=== PATIENT | male | born 1940 | race Caucasian/White ===

== ENCOUNTER 2017-07-19 13:46 | Inpatient (IN) | payer MEDICARE, BC ==
[2017-07-19] MEDS ORDERED: Acetaminophen 325 MG Tab PO ONE (14:59)
[2017-07-19] MEDS ORDERED: Sodium Chloride 0.9% 1,000 ML IV SCH ×2 (15:00→16:00)
--- NOTE | 2017-07-19 15:21 | EDM.PDOC ---
ED HPI GENERAL MEDICAL PROBLEM - General Chief Complaint: General Stated Complaint: FROM CLINIC HIGH BLOOD PRESURE Time Seen by Provider: 07/19/17 15:01 Source of Information: Reports: Patient History Limitations: Reports: No Limitations - History of Present Illness INITIAL COMMENTS - FREE TEXT/NARRATIVE: pt arrived with increased sleepyness and confusion. He does have some dementia. He now has a temp of 102 Onset: Today Duration: Hour(s): Associated Symptoms: Reports: Fever/Chills, Weakness, Other ( confusion) - Related Data Allergies Allergy/AdvReac Type Severity Reaction Status Date / Time No Known Allergies Allergy Verified 07/19/17 14:20 Home Meds: Home Meds Donepezil [Aricept] 5 mg PO BEDTIME 07/19/17 [History] Past Medical History HEENT History: Reports: Cataract Musculoskeletal History: Reports: Arthritis Neurological History: Reports: Other (See Below) Other Neuro History: dementia - Past Surgical History HEENT Surgical History: Reports: None Social & Family History - Tobacco Use Smoking Status *Q: Never Smoker - Recreational Drug Use Recreational Drug Use: No ED ROS GENERAL - Review of Systems Review Of Systems: See Below Constitutional: Reports: Fever, Chills, Malaise, Other ( sleeping alot. ) HEENT: Reports: No Symptoms Respiratory: Reports: No Symptoms Cardiovascular: Reports: No Symptoms Endocrine: Reports: No Symptoms GI/Abdominal: Reports: No Symptoms : Reports: No Symptoms, Other (pt history of a uti with sepsis) Musculoskeletal: Reports: No Symptoms Skin: Reports: No Symptoms Neurological: Reports: No Symptoms Psychiatric: Reports: No Symptoms ED EXAM, GENERAL - Physical Exam Exam: See Below Free Text/Narrative:: pt has a temp of 102. He is quite lethargic. He does answer questions. Exam Limited By: No Limitations General Appearance: Alert, Moderate Distress, Other (pupils equal and reactive. ) Ears: Normal TMs Nose: Normal Inspection Throat/Mouth: Normal Inspection Head: Atraumatic Neck: Normal Inspection Respiratory/Chest: No Respiratory Distress Cardiovascular: Regular Rate, Rhythm, Tachycardia, Other ( heart rate is 95) GI/Abdominal: Soft, Non-Tender (Male) Exam: Other ( guzman cath was placed. ) Rectal (Males) Exam: Deferred Back Exam: Normal Inspection Extremities: Normal Inspection Neurological: Alert, Oriented, Normal Cognition Psychiatric: Normal Affect Course - Vital Signs Last Recorded V/S: Last Vital Signs Temp 36.1 C 07/21/17 07:19 Pulse 61 07/21/17 07:00 Resp 18 07/21/17 07:00 BP 114/72 07/21/17 07:00 Pulse Ox 99 07/21/17 07:00 - Orders/Labs/Meds Orders: Medication Orders Acetaminophen (Tylenol) 650 mg PO Q4H PRN PRN Reason: Pain (Mild 1-3)/fever Last Admin: 07/20/17 23:16 Dose: 650 mg Admin: 07/20/17 14:51 Dose: 650 mg Admin: 07/20/17 05:08 Dose: 650 mg Enoxaparin Sodium (Lovenox) 40 mg SUBCUT BEDTIME [facility] Last Admin: 07/20/17 21:04 Dose: 40 mg Admin: 07/19/17 22:17 Dose: 40 mg Doxycycline Hyclate 100 mg/ (Sodium Chloride) 100 mls @ 100 mls/hr IV Q12H [facility] Last Admin: 07/21/17 05:11 Dose: 100 mls/hr Admin: 07/20/17 18:00 Dose: 100 mls/hr Admin: 07/20/17 05:09 Dose: 100 mls/hr Admin: 07/19/17 17:10 Dose: 100 mls/hr Ibuprofen (Motrin) 400 mg PO Q6H PRN PRN Reason: Pain (mild 1-3) Last Admin: 07/20/17 20:59 Dose: 400 mg Magnesium Hydroxide (Milk Of Magnesia) 30 ml PO Q12H PRN PRN Reason: Constipation Magnesium Oxide (Magnesium Oxide) 400 mg PO BID [facility] Last Admin: 07/20/17 21:09 Dose: 400 mg Admin: 07/20/17 11:40 Dose: 400 mg Melatonin (Melatonin) 9 mg PO BEDTIME [facility] Last Admin: 07/20/17 21:25 Dose: 9 mg Ondansetron HCl (Zofran) 4 mg IV Q4H PRN PRN Reason: Nausea/Vomiting Polyethylene Glycol (Miralax) 17 gm PO DAILY PRN PRN Reason: Constipation Senna/Docusate Sodium (Senna Plus) 1 tab PO BID PRN PRN Reason: Constipation Sodium Chloride (Saline Flush) 10 ml FLUSH ASDIRECTED PRN PRN Reason: Keep Vein Open Labs: Laboratory Tests 07/19/17 07/19/17 07/19/17 Range/Units 14:58 14:58 14:58 WBC 11.0 (4.5-11.0) K/uL RBC 4.85 (4.30-5.90) M/uL Hgb 15.2 H (12.0-15.0) g/dL Hct 44.0 (40.0-54.0) % MCV 91 (80-98) fL MCH 31 (27-31) pg MCHC 35 (32-36) % Plt Count 222 (150-400) K/uL Neut % (Auto) 86 H (36-66) % Lymph % (Auto) 6 L (24-44) % [place] % (Auto) 8 H (2-6) % Eos % (Auto) 0 L (2-4) % Baso % (Auto) 0 (0-1) % Sodium 138 L (140-148) mmol/L Potassium 4.4 (3.6-5.2) mmol/L Chloride 102 (100-108) mmol/L Carbon Dioxide 28 (21-32) mmol/L Anion Gap 12.4 (5.0-14.0) mmol/L BUN 19 H (7-18) mg/dL Creatinine 1.0 (0.8-1.3) mg/dL Est Cr Clr Drug Dosing 55.83 mL/min Estimated GFR (MDRD) > 60 (>60) Glucose 115 H (74-106) mg/dL Lactic Acid 2.4 H (0.4-2.0) mmol/L Calcium 9.1 (8.5-10.1) mg/dL Total Bilirubin 0.7 (0.2-1.0) mg/dL AST 32 (15-37) U/L ALT 31 (12-78) U/L Alkaline Phosphatase 68 (46-116) U/L Total Protein 8.1 (6.4-8.2) g/dL Albumin 3.3 L (3.4-5.0) g/dL Globulin 4.8 H (2.3-3.5) g/dL Albumin/Globulin Ratio 0.7 L (1.2-2.2) Urine Color Urine Appearance Urine pH (4.5-8.0) Ur Specific [place] (1.008-1.030) Urine Protein (NEGATIVE) mg/dL Urine Glucose (UA) (NEGATIVE) mg/dL Urine Ketones (NEGATIVE) mg/dL Urine Occult Blood (NEGATIVE) Urine Nitrite (NEGAITVE) Urine Bilirubin (NEGATIVE) Urine Urobilinogen (NORMAL) mg/dL Ur Leukocyte Esterase (NEGATIVE) Urine RBC (0-5) Urine WBC (0-5) Ur Epithelial Cells Amorphous Sediment Urine Bacteria Urine Mucus 07/19/17 Range/Units 15:49 WBC (4.5-11.0) K/uL RBC (4.30-5.90) M/uL Hgb (12.0-15.0) g/dL Hct (40.0-54.0) % MCV (80-98) fL MCH (27-31) pg MCHC (32-36) % Plt Count (150-400) K/uL Neut % (Auto) (36-66) % Lymph % (Auto) (24-44) % [place] % (Auto) (2-6) % Eos % (Auto) (2-4) % Baso % (Auto) (0-1) % Sodium (140-148) mmol/L Potassium (3.6-5.2) mmol/L Chloride (100-108) mmol/L Carbon Dioxide (21-32) mmol/L Anion Gap (5.0-14.0) mmol/L BUN (7-18) mg/dL Creatinine (0.8-1.3) mg/dL Est Cr Clr Drug Dosing mL/min Estimated GFR (MDRD) (>60) Glucose (74-106) mg/dL Lactic Acid (0.4-2.0) mmol/L Calcium (8.5-10.1) mg/dL Total Bilirubin (0.2-1.0) mg/dL AST (15-37) U/L ALT (12-78) U/L Alkaline Phosphatase (46-116) U/L Total Protein (6.4-8.2) g/dL Albumin (3.4-5.0) g/dL Globulin (2.3-3.5) g/dL Albumin/Globulin Ratio (1.2-2.2) Urine Color Yellow Urine Appearance Clear Urine pH 5.0 (4.5-8.0) Ur Specific [place] 1.015 (1.008-1.030) Urine Protein Negative (NEGATIVE) mg/dL Urine Glucose (UA) Normal (NEGATIVE) mg/dL Urine Ketones Negative (NEGATIVE) mg/dL Urine Occult Blood Large (NEGATIVE) Urine Nitrite Negative (NEGAITVE) Urine Bilirubin Negative (NEGATIVE) Urine Urobilinogen Normal (NORMAL) mg/dL Ur Leukocyte Esterase Negative (NEGATIVE) Urine RBC 0-5 (0-5) Urine WBC Not seen (0-5) Ur Epithelial Cells Not seen Amorphous Sediment Rare Urine Bacteria Not seen Urine Mucus Not seen Meds: Medications Generic Name Dose Route Start Last Admin Trade Name Alyse PRN Reason Stop Dose Admin Acetaminophen 650 mg 07/19/17 17:04 07/20/17 23:16 Tylenol PO 650 mg Q4H PRN Administration Pain (Mild 1-3)/fever Enoxaparin Sodium 40 mg 07/19/17 21:00 07/20/17 21:04 Lovenox SUBCUT 40 mg BEDTIME [facility] Administration Doxycycline Hyclate 100 mg/ 100 mls @ 100 mls/hr 07/19/17 17:30 07/21/17 05: 11 Sodium Chloride IV 100 mls/hr Q12H [facility] Administration Ibuprofen 400 mg 07/19/17 17:04 07/20/17 20:59 Motrin PO 400 mg Q6H PRN Administration Pain (mild 1-3) Magnesium Hydroxide 30 ml 07/19/17 17:04 Milk Of Magnesia PO Q12H PRN Constipation Magnesium Oxide 400 mg 07/20/17 10:30 07/20/17 21:09 Magnesium Oxide PO 400 mg BID [facility] Administration Melatonin 9 mg 07/20/17 21:00 07/20/17 21:25 Melatonin PO 9 mg BEDTIME [facility] Administration Ondansetron HCl 4 mg 07/19/17 17:04 Zofran IV Q4H PRN Nausea/Vomiting Polyethylene Glycol 17 gm 07/19/17 17:04 Miralax PO DAILY PRN Constipation Senna/Docusate Sodium 1 tab 07/19/17 17:04 Senna Plus PO BID PRN Constipation Sodium Chloride 10 ml 07/19/17 17:04 Saline Flush FLUSH ASDIRECTED PRN Keep Vein Open Discontinued Medications Generic Name Dose Route Start Last Admin Trade Name Alyse PRN Reason Stop Dose Admin Acetaminophen 650 mg 07/19/17 14:59 07/19/17 15:06 Tylenol PO 07/19/17 15:00 650 mg NOW ONE Administration Sodium Chloride 1,000 mls @ 999 mls/hr 07/19/17 15:00 07/19/17 15:06 Normal Saline IV 999 mls/hr ASDIRECTED [facility] Administration Sodium Chloride 1,000 mls @ 999 mls/hr 07/19/17 16:00 07/19/17 15:10 Normal Saline IV 999 mls/hr ASDIRECTED [facility] Administration Ceftriaxone Sodium 1 gm/ 50 mls @ 100 mls/hr 07/19/17 17:00 07/19/17 16:51 Sodium Chloride IV 07/19/17 17:29 100 mls/hr ONETIME ONE Administration Lactated Ringer's 1,000 mls @ 250 mls/hr 07/19/17 17:04 07/19/17 20:09 Ringers, Lactated IV 07/19/17 21:05 250 mls/hr ASDIRECTED [facility] Administration Lactated Ringer's 1,000 mls @ 125 mls/hr 07/19/17 21:00 07/20/17 10:17 Ringers, Lactated IV 125 mls/hr ASDIRECTED [facility] Administration Levofloxacin/Dextrose 750 mg/ 150 mls @ 100 mls/hr 07/19/17 18:30 07/19/17 19 :54 Premix IV 100 mls/hr Q24H [facility] Administration Ibuprofen 600 mg 07/19/17 16:04 07/19/17 16:43 Motrin PO 07/19/17 16:05 600 mg ONETIME ONE Administration - Re-Assessments/Exams Free Text/Narrative Re-Assessment/Exam: 07/19/17 16:11 pt had a neg urine. His chest xray is not remarkable. He has a wbc of 11,ooo his bp is stable. Pt has a normal sgot and he has normal platlet count. 07/21/17 07:39 Departure - Departure Time of Disposition: 16:12 Disposition: Admitted As Inpatient 66 Condition: Fair Clinical Impression: Sepsis, At high risk for tick borne illness - Discharge Information
[2017-07-19] MEDS ORDERED: cefTRIAXone 1 GM in Sodium Chloride 0.9% 50 ML IV ONE ×2 (15:37→17:00)
[2017-07-19] MEDS ORDERED: Ibuprofen 600 MG Tab PO ONE (16:04)
[2017-07-19] MEDS ORDERED: Polyethylene Glycol 3350 Powder 17 GM Packet PO PRN (17:04)
[2017-07-19] MEDS ORDERED: Sodium Chloride 0.9% 10 ML Syringe FLUSH PRN (17:04)
[2017-07-19] MEDS ORDERED: Lactated Ringers 1,000 ML IV SCH ×2 (17:04→21:00)
[2017-07-19] MEDS ORDERED: Levofloxacin/Dextrose 5%-Water 750 MG in Premix Bag 1 BAG IV SCH ×2 (17:04→18:30)
[2017-07-19] MEDS ORDERED: Ondansetron 4 MG/2 ML SDV IV PRN (17:04)
[2017-07-19] MEDS ORDERED: Enoxaparin 40 MG/0.4 ML Syringe SUBCUT SCH (17:04)
[2017-07-19] MEDS ORDERED: Ibuprofen 400 MG Tab PO PRN (17:04)
--- NOTE | 2017-07-19 17:06 | PCM.HP ---
H&P History of Present Illness - General Date of Service: 07/19/17 Admit Problem/Dx: Admission Diagnosis/Problem Admission Diagnosis/Problem Fever Source of Information: Family, Provider, RN Notes Reviewed History Limitations: Reports: Altered Mental Status (Dementia) - History of Present Illness Initial Comments - Free Text/Narative: Mr. Zapata is a 77-year-old gentleman who is admitted through the emergency department with lethargy and fever. At baseline he has dementia, typically is up and about but has difficulty with memory and speech. His noted that he seemed to be more confused today and became progressively more weak. He was brought into the emergency department for further evaluation and found to have significant temperature elevation of 102, later rising to 103. He is otherwise fairly healthy and has not had much in the way of past medical history other than his dementia. He has been exposed to ticks recently and has been outside on a regular basis. Patient himself is unable to provide significant information concerning symptoms or review of systems because of his underlying dementia. Evaluation in the emergency department has shown a normal urinalysis and no evidence of infiltrate on chest x-ray. - Related Data Allergies/Adverse Reactions: Allergies Allergy/AdvReac Type Severity Reaction Status Date / Time No Known Allergies Allergy Verified 07/19/17 14:20 Home Medications: Home Meds Donepezil [Aricept] 5 mg PO BEDTIME 07/19/17 [History] Past Medical History HEENT History: Reports: Cataract Musculoskeletal History: Reports: Arthritis Neurological History: Reports: Other (See Below) Other Neuro History: dementia - Past Surgical History HEENT Surgical History: Reports: None Social & Family History - Tobacco Use Smoking Status *Q: Never Smoker - Recreational Drug Use Recreational Drug Use: No H&P Review of Systems - Review of Systems: Review Of Systems: Unable To Obtain General: Reports: ROS unobtainable (Because of dementia) Exam - Exam Exam: See Below - Vital Signs Vital Signs: Last Vital Signs Temp 101.8 F H 07/19/17 16:47 Pulse 91 07/19/17 14:21 Resp 16 07/19/17 16:47 BP 140/77 07/19/17 16:47 Pulse Ox 98 07/19/17 16:47 Weight: 158 lb - Exam Quality Assessment: DVT Prophylaxis General: Cooperative, Lethargic HEENT: Conjunctiva Clear, Hearing Intact, Mucosa Moist & [place], Normal Nasal Septum, Posterior Pharynx Clear, Pupils Equal Neck: Supple, Trachea Midline, +2 Carotid Pulse wo Bruit Lungs: Clear to Auscultation, Normal Respiratory Effort Cardiovascular: Regular Rate, Regular Rhythm, Normal S1, Normal S2. No: Systolic Murmur, Diastolic Murmur GI/Abdominal Exam: Soft, Non-Tender, No Organomegaly, No Distention (Male) Exam: Normal Inspection. No: Circumcised Back Exam: Normal Inspection, Full Range of Motion. No: CVA Tenderness (R), CVA Tenderness (L) Extremities: Non-Tender, No Pedal Edema Skin: Warm, Dry, Intact, Rash (Small petechiae erythematous on the chest) Neurological: Cranial Nerves Intact, Strength Equal Bilateral, Normal Tone. No : Normal Speech, Focal Deficit Neuro Extensive - Mental Status: No: Normal Cognition, Memory Intact - Patient Data Lab Results Last 24 hrs: Laboratory Results - last 24 hr 07/19/17 07/19/17 07/19/17 Range/Units 14:58 14:58 14:58 WBC 11.0 (4.5-11.0) K/uL RBC 4.85 (4.30-5.90) M/uL Hgb 15.2 H (12.0-15.0) g/dL Hct 44.0 (40.0-54.0) % MCV 91 (80-98) fL MCH 31 (27-31) pg MCHC 35 (32-36) % Plt Count 222 (150-400) K/uL Neut % (Auto) 86 H (36-66) % Lymph % (Auto) 6 L (24-44) % [place] % (Auto) 8 H (2-6) % Eos % (Auto) 0 L (2-4) % Baso % (Auto) 0 (0-1) % Sodium 138 L (140-148) mmol/L Potassium 4.4 (3.6-5.2) mmol/L Chloride 102 (100-108) mmol/L Carbon Dioxide 28 (21-32) mmol/L Anion Gap 12.4 (5.0-14.0) mmol/L BUN 19 H (7-18) mg/dL Creatinine 1.0 (0.8-1.3) mg/dL Est Cr Clr Drug Dosing 55.83 mL/min Estimated GFR (MDRD) > 60 (>60) Glucose 115 H (74-106) mg/dL Lactic Acid 2.4 H (0.4-2.0) mmol/L Calcium 9.1 (8.5-10.1) mg/dL Total Bilirubin 0.7 (0.2-1.0) mg/dL AST 32 (15-37) U/L ALT 31 (12-78) U/L Alkaline Phosphatase 68 (46-116) U/L Total Protein 8.1 (6.4-8.2) g/dL Albumin 3.3 L (3.4-5.0) g/dL Globulin 4.8 H (2.3-3.5) g/dL Albumin/Globulin Ratio 0.7 L (1.2-2.2) Urine Color Urine Appearance Urine pH (4.5-8.0) Ur Specific [place] (1.008-1.030) Urine Protein (NEGATIVE) mg/dL Urine Glucose (UA) (NEGATIVE) mg/dL Urine Ketones (NEGATIVE) mg/dL Urine Occult Blood (NEGATIVE) Urine Nitrite (NEGAITVE) Urine Bilirubin (NEGATIVE) Urine Urobilinogen (NORMAL) mg/dL Ur Leukocyte Esterase (NEGATIVE) Urine RBC (0-5) Urine WBC (0-5) Ur Epithelial Cells Amorphous Sediment Urine Bacteria Urine Mucus 07/19/17 Range/Units 15:49 WBC (4.5-11.0) K/uL RBC (4.30-5.90) M/uL Hgb (12.0-15.0) g/dL Hct (40.0-54.0) % MCV (80-98) fL MCH (27-31) pg MCHC (32-36) % Plt Count (150-400) K/uL Neut % (Auto) (36-66) % Lymph % (Auto) (24-44) % Stone % (Auto) (2-6) % Eos % (Auto) (2-4) % Baso % (Auto) (0-1) % Sodium (140-148) mmol/L Potassium (3.6-5.2) mmol/L Chloride (100-108) mmol/L Carbon Dioxide (21-32) mmol/L Anion Gap (5.0-14.0) mmol/L BUN (7-18) mg/dL Creatinine (0.8-1.3) mg/dL Est Cr Clr Drug Dosing mL/min Estimated GFR (MDRD) (>60) Glucose (74-106) mg/dL Lactic Acid (0.4-2.0) mmol/L Calcium (8.5-10.1) mg/dL Total Bilirubin (0.2-1.0) mg/dL AST (15-37) U/L ALT (12-78) U/L Alkaline Phosphatase (46-116) U/L Total Protein (6.4-8.2) g/dL Albumin (3.4-5.0) g/dL Globulin (2.3-3.5) g/dL Albumin/Globulin Ratio (1.2-2.2) Urine Color Yellow Urine Appearance Clear Urine pH 5.0 (4.5-8.0) Ur Specific [place] 1.015 (1.008-1.030) Urine Protein Negative (NEGATIVE) mg/dL Urine Glucose (UA) Normal (NEGATIVE) mg/dL Urine Ketones Negative (NEGATIVE) mg/dL Urine Occult Blood Large (NEGATIVE) Urine Nitrite Negative (NEGAITVE) Urine Bilirubin Negative (NEGATIVE) Urine Urobilinogen Normal (NORMAL) mg/dL Ur Leukocyte Esterase Negative (NEGATIVE) Urine RBC 0-5 (0-5) Urine WBC Not seen (0-5) Ur Epithelial Cells Not seen Amorphous Sediment Rare Urine Bacteria Not seen Urine Mucus Not seen Result Diagrams: 07/19/17 14:58 07/19/17 14:58 *Q Meaningful Use (ADM) - VTE Risk Assess *Q Each Risk Factor Represents 1 Point: Obesity ( BMI > 25 kg/m2) Total Score 1 Point Risk Factors: 1 Each Risk Factor Represents 2 Points: None Total Score 2 Point Risk Factors: 0 Each Risk Factor Represents 3 Points: Age 75 Years or Greater Total Score 3 Point Risk Factors: 3 Each Risk Factor Represents 5 Points: None Total Score 5 Point Risk Factors: 0 Venous Thromboembolism Risk Factor Score *Q: 4 Problem List Initiated/Reviewed/Updated: Yes Orders Last 24hrs: Active Orders 24 hr Category Date Time Status Patient Status Manage Transfer [TRANSFER] Routine ADT 07/19/17 16:46 Ordered EKG Documentation Completion [RC] ASDIRECTED Care 07/19/17 14:58 Active Guerra Catheter Insertion [Insert Urinary Catheter] [OM. Care 07/19/17 15:00 Ordered PC] Q24H Urinary Catheter Assessment [RC] ASDIRECTED Care 07/19/17 15:00 Active Chest 1V Frontal [CR] Stat Exams 07/19/17 15:00 Taken BABESIA MICROTI ANTIBODY PANEL Stat Lab 07/19/17 16:07 Ordered CULTURE BLOOD [BC] Urgent Lab 07/19/17 14:59 Ordered CULTURE BLOOD [BC] Urgent Lab 07/19/17 14:59 Ordered E. CHAFFEENSIS-HME (MONOCYTIC) Stat Lab 07/19/17 16:10 Ordered UA W/MICROSCOPIC [URIN] Urgent Lab 07/19/17 15:49 Ordered Doxycycline [Vibramycin] 100 mg Med 07/19/17 17:30 Active Sodium Chloride 0.9% [Normal Saline] 100 ml IV Q12H Sodium Chloride 0.9% [Normal Saline] 1,000 ml Med 07/19/17 15:00 Active IV ASDIRECTED Sodium Chloride 0.9% [Normal Saline] 1,000 ml Med 07/19/17 16:00 Active IV ASDIRECTED cefTRIAXone [Rocephin] 1 gm Med 07/19/17 17:00 Active Sodium Chloride 0.9% [Normal Saline] 50 ml IV ONETIME Blood Culture x2 Reflex Set [OM.PC] Urgent Oth 07/19/17 14:59 Ordered Resuscitation Status Routine Resus Stat 07/19/17 16:55 Ordered EKG 12 Lead [EK] Routine Ther 07/19/17 14:58 Ordered Medication Orders Sodium Chloride (Normal Saline) 1,000 mls @ 999 mls/hr IV ASDIRECTED [facility] Last Admin: 07/19/17 15:06 Dose: 999 mls/hr Sodium Chloride (Normal Saline) 1,000 mls @ 999 mls/hr IV ASDIRECTED [facility] Last Admin: 07/19/17 15:10 Dose: 999 mls/hr Ceftriaxone Sodium 1 gm/ (Sodium Chloride) 50 mls @ 100 mls/hr IV ONETIME ONE Stop: 07/19/17 17:29 Last Admin: 07/19/17 16:51 Dose: 100 mls/hr Doxycycline Hyclate 100 mg/ (Sodium Chloride) 100 mls @ 100 mls/hr IV Q12H [facility] Assessment/Plan Comment:: ASSESSMENT AND PLAN FEBRILE ILLNESS WITH EARLY SEPSIS-specific source not yet identified, initial evaluation in the emergency department unremarkable for pulmonary, abdominal, or urinary source. Physical examination also shows no obvious identified source. Possible tickborne illness with anaplasmosis as he has had recent tick exposure. -Blood cultures pending -Tylenol and/or ibuprofen as needed for fever -Repeat chest x-ray in a.m. after hydration -Follow-up lactic acid level later tonight -IV doxycycline and levofloxacin DEMENTIA-at baseline has significant confusion and difficulty with speech MAINTENANCE ISSUES -DVT prophylaxis; Lovenox 40 mg subcutaneous every 24 hours -GI prophylaxis; not indicated -Guerra catheter; placed in emergency department, will have removed immediately after admission -Nutrition; regular diet -Nicotine dependence; not required CODE STATUS-DNR/DNI ADMISSION STATUS-patient will be admitted to inpatient status, expect at least a 2 night hospital stay for evaluation and management of problems as outlined above. At the time of this admission I do not reasonably expected evaluation and management of this problem will require more than a 96 hour hospital stay. DISPOSITION-anticipate discharge to home after the hospital stay. PRIMARY CARE PROVIDER-Dr. Khoury
[2017-07-19] MEDS: Doxycycline 100 MG in Sodium Chloride 0.9% 100 ML IV SCH (17:10)
[2017-07-19] MEDS: Enoxaparin 40 MG/0.4 ML Syringe SUBCUT SCH (22:17)
--- NOTE | 2017-07-19 22:47 | PCM.SN ---
- Free Text/Narrative Note: time: 2199 call from 2 [facility] O: Lactic acid at 2100 is 2.6, at 1500 is 2.4, patient is afebrile, temp 98.6 ( 37.0) A: elevated Lactic acid P: repeat at 0300 continue present plan of care
[2017-07-20] MEDS: Acetaminophen 325 MG Tab PO PRN ×3 (05:08→23:16)
[2017-07-20] MEDS: Doxycycline 100 MG in Sodium Chloride 0.9% 100 ML IV SCH ×2 (05:09→18:00)
--- NOTE | 2017-07-20 09:45 | CR ---
Findings: Heart size within normal limits. No focal consolidation. No pneumothorax. Difficult to excl ude a pulmonary nodule right lung base measuring 8 mm. Consider noncontrast chest CT follow-up.
--- NOTE | 2017-07-20 09:48 | CR ---
No focal consolidation. Pulmonary vascular culture within normal limits. Again nodular density right lung base which may indicate a pulmonary nodule.
--- NOTE | 2017-07-20 10:24 | PCM.PN ---
- General Info Date of Service: 07/20/17 Subjective Update: Mr. Zapata has been stable since admission, vital signs have been good and his lactic acid level has normalized. He has had only mild temperature elevations and is more alert and interactive. Unable to provide significant information concerning symptoms or review systems because of underlying dementia. - Patient Data Vitals - Most Recent: Last Vital Signs Temp 99.4 F 07/20/17 07:23 Pulse 88 07/20/17 07:23 Resp 16 07/20/17 07:23 BP 123/71 07/20/17 07:23 Pulse Ox 96 07/20/17 07:23 Weight - Most Recent: 158 lb 0.014 oz I&O - Last 24 Hours: Intake & Output 07/19/17 07/20/17 07/20/17 22:59 06:59 14:59 Intake Total 2299 240 Output Total 1900 600 600 Balance -1900 1699 -360 Lab Results Last 24 Hours: Laboratory Results - last 24 hr 07/19/17 07/19/17 07/19/17 Range/Units 14:58 14:58 14:58 WBC 11.0 (4.5-11.0) K/uL RBC 4.85 (4.30-5.90) M/uL Hgb 15.2 H (12.0-15.0) g/dL Hct 44.0 (40.0-54.0) % MCV 91 (80-98) fL MCH 31 (27-31) pg MCHC 35 (32-36) % Plt Count 222 (150-400) K/uL Neut % (Auto) 86 H (36-66) % Lymph % (Auto) 6 L (24-44) % [place] % (Auto) 8 H (2-6) % Eos % (Auto) 0 L (2-4) % Baso % (Auto) 0 (0-1) % Sodium 138 L (140-148) mmol/L Potassium 4.4 (3.6-5.2) mmol/L Chloride 102 (100-108) mmol/L Carbon Dioxide 28 (21-32) mmol/L Anion Gap 12.4 (5.0-14.0) mmol/L BUN 19 H (7-18) mg/dL Creatinine 1.0 (0.8-1.3) mg/dL Est Cr Clr Drug Dosing 55.83 mL/min Estimated GFR (MDRD) > 60 (>60) Glucose 115 H (74-106) mg/dL Lactic Acid 2.4 H (0.4-2.0) mmol/L Calcium 9.1 (8.5-10.1) mg/dL Magnesium (1.8-2.4) mg/dL Total Bilirubin 0.7 (0.2-1.0) mg/dL AST 32 (15-37) U/L ALT 31 (12-78) U/L Alkaline Phosphatase 68 (46-116) U/L Total Protein 8.1 (6.4-8.2) g/dL Albumin 3.3 L (3.4-5.0) g/dL Globulin 4.8 H (2.3-3.5) g/dL Albumin/Globulin Ratio 0.7 L (1.2-2.2) Urine Color Urine Appearance Urine pH (4.5-8.0) Ur Specific [place] (1.008-1.030) Urine Protein (NEGATIVE) mg/dL Urine Glucose (UA) (NEGATIVE) mg/dL Urine Ketones (NEGATIVE) mg/dL Urine Occult Blood (NEGATIVE) Urine Nitrite (NEGAITVE) Urine Bilirubin (NEGATIVE) Urine Urobilinogen (NORMAL) mg/dL Ur Leukocyte Esterase (NEGATIVE) Urine RBC (0-5) Urine WBC (0-5) Ur Epithelial Cells Amorphous Sediment Urine Bacteria Urine Mucus 07/19/17 07/19/17 07/20/17 Range/Units 15:49 21:00 03:03 WBC (4.5-11.0) K/uL RBC (4.30-5.90) M/uL Hgb (12.0-15.0) g/dL Hct (40.0-54.0) % MCV (80-98) fL MCH (27-31) pg MCHC (32-36) % Plt Count (150-400) K/uL Neut % (Auto) (36-66) % Lymph % (Auto) (24-44) % [place] % (Auto) (2-6) % Eos % (Auto) (2-4) % Baso % (Auto) (0-1) % Sodium (140-148) mmol/L Potassium (3.6-5.2) mmol/L Chloride (100-108) mmol/L Carbon Dioxide (21-32) mmol/L Anion Gap (5.0-14.0) mmol/L BUN (7-18) mg/dL Creatinine (0.8-1.3) mg/dL Est Cr Clr Drug Dosing mL/min Estimated GFR (MDRD) (>60) Glucose (74-106) mg/dL Lactic Acid 2.6 H 1.5 (0.4-2.0) mmol/L Calcium (8.5-10.1) mg/dL Magnesium (1.8-2.4) mg/dL Total Bilirubin (0.2-1.0) mg/dL AST (15-37) U/L ALT (12-78) U/L Alkaline Phosphatase (46-116) U/L Total Protein (6.4-8.2) g/dL Albumin (3.4-5.0) g/dL Globulin (2.3-3.5) g/dL Albumin/Globulin Ratio (1.2-2.2) Urine Color Yellow Urine Appearance Clear Urine pH 5.0 (4.5-8.0) Ur Specific [place] 1.015 (1.008-1.030) Urine Protein Negative (NEGATIVE) mg/dL Urine Glucose (UA) Normal (NEGATIVE) mg/dL Urine Ketones Negative (NEGATIVE) mg/dL Urine Occult Blood Large (NEGATIVE) Urine Nitrite Negative (NEGAITVE) Urine Bilirubin Negative (NEGATIVE) Urine Urobilinogen Normal (NORMAL) mg/dL Ur Leukocyte Esterase Negative (NEGATIVE) Urine RBC 0-5 (0-5) Urine WBC Not seen (0-5) Ur Epithelial Cells Not seen Amorphous Sediment Rare Urine Bacteria Not seen Urine Mucus Not seen 07/20/17 07/20/17 Range/Units 05:11 05:11 WBC 6.0 (4.5-11.0) K/uL RBC 4.14 L (4.30-5.90) M/uL Hgb 13.0 D (12.0-15.0) g/dL Hct 37.5 L (40.0-54.0) % MCV 91 (80-98) fL MCH 31 (27-31) pg MCHC 35 (32-36) % Plt Count 185 (150-400) K/uL Neut % (Auto) 87 H (36-66) % Lymph % (Auto) 8 L (24-44) % [place] % (Auto) 5 (2-6) % Eos % (Auto) 0 L (2-4) % Baso % (Auto) 0 (0-1) % Sodium 139 L (140-148) mmol/L Potassium 3.7 (3.6-5.2) mmol/L Chloride 104 (100-108) mmol/L Carbon Dioxide 25 (21-32) mmol/L Anion Gap 13.7 (5.0-14.0) mmol/L BUN 16 (7-18) mg/dL Creatinine 0.9 (0.8-1.3) mg/dL Est Cr Clr Drug Dosing 62.03 mL/min Estimated GFR (MDRD) > 60 (>60) Glucose 102 (74-106) mg/dL Lactic Acid (0.4-2.0) mmol/L Calcium 7.9 L (8.5-10.1) mg/dL Magnesium 1.6 L (1.8-2.4) mg/dL Total Bilirubin 0.3 D (0.2-1.0) mg/dL AST 27 (15-37) U/L ALT 27 (12-78) U/L Alkaline Phosphatase 53 (46-116) U/L Total Protein 6.3 L (6.4-8.2) g/dL Albumin 2.3 L (3.4-5.0) g/dL Globulin 4.0 H (2.3-3.5) g/dL Albumin/Globulin Ratio 0.6 L (1.2-2.2) Urine Color Urine Appearance Urine pH (4.5-8.0) Ur Specific [place] (1.008-1.030) Urine Protein (NEGATIVE) mg/dL Urine Glucose (UA) (NEGATIVE) mg/dL Urine Ketones (NEGATIVE) mg/dL Urine Occult Blood (NEGATIVE) Urine Nitrite (NEGAITVE) Urine Bilirubin (NEGATIVE) Urine Urobilinogen (NORMAL) mg/dL Ur Leukocyte Esterase (NEGATIVE) Urine RBC (0-5) Urine WBC (0-5) Ur Epithelial Cells Amorphous Sediment Urine Bacteria Urine Mucus Med Orders - Current: Current Medications Acetaminophen (Tylenol) 650 mg PO Q4H PRN PRN Reason: Pain (Mild 1-3)/fever Last Admin: 07/20/17 05:08 Dose: 650 mg Enoxaparin Sodium (Lovenox) 40 mg SUBCUT BEDTIME [facility] Last Admin: 07/19/17 22:17 Dose: 40 mg Doxycycline Hyclate 100 mg/ (Sodium Chloride) 100 mls @ 100 mls/hr IV Q12H [facility] Last Admin: 07/20/17 05:09 Dose: 100 mls/hr Ibuprofen (Motrin) 400 mg PO Q6H PRN PRN Reason: Pain (mild 1-3) Magnesium Hydroxide (Milk Of Magnesia) 30 ml PO Q12H PRN PRN Reason: Constipation Magnesium Oxide (Magnesium Oxide) 400 mg PO BID [facility] Melatonin (Melatonin) 9 mg PO BEDTIME [facility] Ondansetron HCl (Zofran) 4 mg IV Q4H PRN PRN Reason: Nausea/Vomiting Polyethylene Glycol (Miralax) 17 gm PO DAILY PRN PRN Reason: Constipation Senna/Docusate Sodium (Senna Plus) 1 tab PO BID PRN PRN Reason: Constipation Sodium Chloride (Saline Flush) 10 ml FLUSH ASDIRECTED PRN PRN Reason: Keep Vein Open Discontinued Medications Acetaminophen (Tylenol) 650 mg PO NOW ONE Stop: 07/19/17 15:00 Last Admin: 07/19/17 15:06 Dose: 650 mg Sodium Chloride (Normal Saline) 1,000 mls @ 999 mls/hr IV ASDIRECTED [facility] Last Admin: 07/19/17 15:06 Dose: 999 mls/hr Sodium Chloride (Normal Saline) 1,000 mls @ 999 mls/hr IV ASDIRECTED [facility] Last Admin: 07/19/17 15:10 Dose: 999 mls/hr Ceftriaxone Sodium 1 gm/ (Sodium Chloride) 50 mls @ 100 mls/hr IV ONETIME ONE Stop: 07/19/17 17:29 Last Admin: 07/19/17 16:51 Dose: 100 mls/hr Lactated Ringer's (Ringers, Lactated) 1,000 mls @ 250 mls/hr IV ASDIRECTED [facility] Stop: 07/19/17 21:05 Last Admin: 07/19/17 20:09 Dose: 250 mls/hr Lactated Ringer's (Ringers, Lactated) 1,000 mls @ 125 mls/hr IV ASDIRECTED [facility] Last Admin: 07/20/17 10:17 Dose: 125 mls/hr Levofloxacin/Dextrose 750 mg/ (Premix) 150 mls @ 100 mls/hr IV Q24H [facility] Last Admin: 07/19/17 19:54 Dose: 100 mls/hr Ibuprofen (Motrin) 600 mg PO ONETIME ONE Stop: 07/19/17 16:05 Last Admin: 07/19/17 16:43 Dose: 600 mg - Exam Quality Assessment: DVT Prophylaxis General: Alert, Cooperative, No Acute Distress Lungs: Clear to Auscultation, Normal Respiratory Effort Cardiovascular: Regular Rate, Regular Rhythm, No Murmurs GI/Abdominal Exam: Soft, Non-Tender, No Organomegaly, No Distention Extremities: Non-Tender, No Pedal Edema Skin: Warm, Dry, Intact - Problem List Review Problem List Initiated/Reviewed/Updated: Yes - My Orders Last 24 Hours: My Active Orders 07/19/17 16:55 Resuscitation Status Routine 07/19/17 17:04 Patient Status [ADT] Routine Ambulate [RC] QID Height and Weight [RC] DAILY Intake and Output [RC] QSHIFT Notify Provider Vital Signs [RC] ASDIRECTED Oxygen Therapy [RC] PRN Up to Chair [RC] QID VTE/DVT Education [RC] Per Unit Routine Vital Signs [RC] Q4H Acetaminophen [Tylenol] 650 mg PO Q4H PRN Docusate Sodium/Sennosides [Senna Plus] 1 tab PO BID PRN Ibuprofen [Motrin] 400 mg PO Q6H PRN Magnesium Hydroxide [Milk of Magnesia] 30 ml PO Q12H PRN Ondansetron [Zofran] 4 mg IV Q4H PRN Polyethylene Glycol 3350 [MiraLAX] 17 gm PO DAILY PRN Sodium Chloride 0.9% [Saline Flush] 10 ml FLUSH ASDIRECTED PRN Peripheral IV Insertion Adult [OM.PC] Routine 07/19/17 17:30 Doxycycline [Vibramycin] 100 mg Sodium Chloride 0.9% [Normal Saline] 100 ml IV Q12H 07/19/17 21:00 Enoxaparin [Lovenox] 40 mg SUBCUT BEDTIME 07/19/17 Lunch Regular Diet [DIET] 07/20/17 10:19 Convert IV to Saline Lock [OM.PC] Routine 07/20/17 10:20 Consult to Physical Therapy [PT Evaluation and Treatment] [CONS] Routine 07/20/17 10:30 Magnesium Oxide 400 mg PO BID 07/20/17 21:00 Melatonin 9 mg PO BEDTIME 07/21/17 05:00 BASIC METABOLIC PANEL,BMP [CHEM] Timed - Plan Plan:: ASSESSMENT AND PLAN PROBABLE ANAPLASMOSIS- no other source of infection identified thus far on evaluation, chest x-ray following hydration shows no obvious infiltrates. Lactic acidosis has resolved. -Blood cultures pending -Tylenol and/or ibuprofen as needed for fever -Discontinue levofloxacin -IV doxycycline DEMENTIA-at baseline has significant confusion and difficulty with speech -Melatonin 9 mg by mouth daily at bedtime MAINTENANCE ISSUES -DVT prophylaxis; Lovenox 40 mg subcutaneous every 24 hours -GI prophylaxis; not indicated -Guerra catheter; placed in emergency department, will have removed immediately after admission -Nutrition; regular diet -Nicotine dependence; not required CODE STATUS-DNR/DNI ADMISSION STATUS-patient will be admitted to inpatient status, expect at least a 2 night hospital stay for evaluation and management of problems as outlined above. At the time of this admission I do not reasonably expected evaluation and management of this problem will require more than a 96 hour hospital stay. DISPOSITION-anticipate discharge to home after the hospital stay. PRIMARY CARE PROVIDER-Dr. Khoury
[2017-07-20] MEDS: Magnesium Oxide 400 MG Tab PO SCH ×2 (11:40→21:09)
[2017-07-20] MEDS: Enoxaparin 40 MG/0.4 ML Syringe SUBCUT SCH (21:04)
[2017-07-20] MEDS: Melatonin 3 MG Tab PO SCH (21:25)
[2017-07-21] MEDS: Doxycycline 100 MG in Sodium Chloride 0.9% 100 ML IV SCH ×2 (05:11→17:19)
[2017-07-21] MEDS ORDERED: Potassium Chloride 20 MEQ Tab.ER PO ONE ×2 (09:00→17:00)
[2017-07-21] MEDS: Magnesium Oxide 400 MG Tab PO SCH ×2 (09:09→20:09)
[2017-07-21] MEDS: Magnesium Hydroxide 400 MG/5 ML Susp 30 ML Cup PO PRN (11:08)
--- NOTE | 2017-07-21 11:36 | PCM.PN ---
- General Info Date of Service: 07/21/17 Subjective Update: Mr. Zapata has been stable since yesterday, he did have recurrent temperature elevations yesterday afternoon and evening, but none since then. He remains fairly weak and requires assistance of 2 with ambulation. Appetite seems to be fairly good, he's not had a bowel movement for 2 days. Because of dementia and is unable to provide significant information concerning symptoms or review of systems. Functional Status: Reports: Tolerating Diet, Ambulating, Urinating - Review of Systems General: Reports: Fever, Weakness - Patient Data Vitals - Most Recent: Last Vital Signs Temp 97.0 F 07/21/17 07:19 Pulse 61 07/21/17 07:00 Resp 18 07/21/17 07:00 BP 114/72 07/21/17 07:00 Pulse Ox 99 07/21/17 07:00 Weight - Most Recent: 146 lb 5 oz I&O - Last 24 Hours: Intake & Output 07/20/17 07/21/17 07/21/17 22:59 06:59 14:59 Intake Total 360 580 Balance 360 580 Lab Results Last 24 Hours: Laboratory Results - last 24 hr 07/21/17 Range/Units 05:53 Sodium 139 L (140-148) mmol/L Potassium 3.2 L (3.6-5.2) mmol/L Chloride 104 (100-108) mmol/L Carbon Dioxide 27 (21-32) mmol/L Anion Gap 11.2 (5.0-14.0) mmol/L BUN 11 (7-18) mg/dL Creatinine 1.0 (0.8-1.3) mg/dL Est Cr Clr Drug Dosing 55.83 mL/min Estimated GFR (MDRD) > 60 (>60) Glucose 108 H (74-106) mg/dL Calcium 7.6 L (8.5-10.1) mg/dL [place] Results Last 24 Hours: Microbiology 07/19/17 15:15 Aerobic Blood Culture - Preliminary Blood - Arm, Right NO GROWTH AFTER 1 DAY Anaerobic Blood Culture - Preliminary NO GROWTH AFTER 1 DAY 07/19/17 15:00 Aerobic Blood Culture - Preliminary Blood - Venous - Iv Start NO GROWTH AFTER 1 DAY Anaerobic Blood Culture - Preliminary NO GROWTH AFTER 1 DAY Med Orders - Current: Current Medications Acetaminophen (Tylenol) 650 mg PO Q4H PRN PRN Reason: Pain (Mild 1-3)/fever Last Admin: 07/20/17 23:16 Dose: 650 mg Enoxaparin Sodium (Lovenox) 40 mg SUBCUT BEDTIME [facility] Last Admin: 07/20/17 21:04 Dose: 40 mg Doxycycline Hyclate 100 mg/ (Sodium Chloride) 100 mls @ 100 mls/hr IV Q12H [facility] Last Admin: 07/21/17 05:11 Dose: 100 mls/hr Ibuprofen (Motrin) 400 mg PO Q6H PRN PRN Reason: Pain (mild 1-3) Last Admin: 07/20/17 20:59 Dose: 400 mg Magnesium Hydroxide (Milk Of Magnesia) 30 ml PO Q12H PRN PRN Reason: Constipation Last Admin: 07/21/17 11:08 Dose: 30 ml Magnesium Oxide (Magnesium Oxide) 400 mg PO BID [facility] Last Admin: 07/21/17 09:09 Dose: 400 mg Melatonin (Melatonin) 9 mg PO BEDTIME [facility] Last Admin: 07/20/17 21:25 Dose: 9 mg Ondansetron HCl (Zofran) 4 mg IV Q4H PRN PRN Reason: Nausea/Vomiting Polyethylene Glycol (Miralax) 17 gm PO DAILY PRN PRN Reason: Constipation Potassium Chloride (Klor-Con M20) 40 meq PO ONETIME ONE Stop: 07/21/17 17:01 Senna/Docusate Sodium (Senna Plus) 1 tab PO BID PRN PRN Reason: Constipation Sodium Chloride (Saline Flush) 10 ml FLUSH ASDIRECTED PRN PRN Reason: Keep Vein Open Discontinued Medications Acetaminophen (Tylenol) 650 mg PO NOW ONE Stop: 07/19/17 15:00 Last Admin: 07/19/17 15:06 Dose: 650 mg Sodium Chloride (Normal Saline) 1,000 mls @ 999 mls/hr IV ASDIRECTED [facility] Last Admin: 07/19/17 15:06 Dose: 999 mls/hr Sodium Chloride (Normal Saline) 1,000 mls @ 999 mls/hr IV ASDIRECTED [facility] Last Admin: 07/19/17 15:10 Dose: 999 mls/hr Ceftriaxone Sodium 1 gm/ (Sodium Chloride) 50 mls @ 100 mls/hr IV ONETIME ONE Stop: 07/19/17 17:29 Last Admin: 05/31/18 16:51 Dose: 100 mls/hr Lactated Ringer's (Ringers, Lactated) 1,000 mls @ 250 mls/hr IV ASDIRECTED [facility] Stop: 07/19/17 21:05 Last Admin: 07/19/17 20:09 Dose: 250 mls/hr Lactated Ringer's (Ringers, Lactated) 1,000 mls @ 125 mls/hr IV ASDIRECTED [facility] Last Admin: 07/20/17 10:17 Dose: 125 mls/hr Levofloxacin/Dextrose 750 mg/ (Premix) 150 mls @ 100 mls/hr IV Q24H [facility] Last Admin: 07/19/17 19:54 Dose: 100 mls/hr Ibuprofen (Motrin) 600 mg PO ONETIME ONE Stop: 07/19/17 16:05 Last Admin: 07/19/17 16:43 Dose: 600 mg Potassium Chloride (Klor-Con M20) 40 meq PO ONETIME ONE Stop: 07/21/17 09:01 Last Admin: 07/21/17 09:09 Dose: 40 meq - Exam Quality Assessment: DVT Prophylaxis General: Alert, Cooperative, No Acute Distress. No: Oriented Lungs: Clear to Auscultation, Normal Respiratory Effort Cardiovascular: Regular Rate, Regular Rhythm, No Murmurs GI/Abdominal Exam: Soft, Non-Tender, No Organomegaly, No Distention Extremities: Non-Tender, No Pedal Edema Skin: Warm, Dry - Problem List Review Problem List Initiated/Reviewed/Updated: Yes - My Orders Last 24 Hours: My Active Orders 07/20/17 21:00 Melatonin 9 mg PO BEDTIME 07/21/17 11:33 POTASSIUM,K [CHEM] Timed 07/21/17 17:00 Potassium Chloride [Klor-Con M20] 40 meq PO ONETIME ONE - Plan Plan:: ASSESSMENT AND PLAN ANAPLASMOSIS- no other source of infection identified thus far on evaluation, recurrent fever yesterday afternoon and evening, none since then -Blood cultures pending -Serology for anaplasmosis pending -Tylenol and/or ibuprofen as needed for fever -IV doxycycline DEMENTIA-at baseline has significant confusion and difficulty with speech -Melatonin 9 mg by mouth daily at bedtime MAINTENANCE ISSUES -DVT prophylaxis; Lovenox 40 mg subcutaneous every 24 hours -GI prophylaxis; not indicated -Guerra catheter; placed in emergency department, will have removed immediately after admission -Nutrition; regular diet -Nicotine dependence; not required CODE STATUS-DNR/DNI ADMISSION STATUS-patient will be admitted to inpatient status, expect at least a 2 night hospital stay for evaluation and management of problems as outlined above. At the time of this admission I do not reasonably expected evaluation and management of this problem will require more than a 96 hour hospital stay. DISPOSITION-anticipate discharge to home after the hospital stay. PRIMARY CARE PROVIDER-Dr. Khoury
[2017-07-21] MEDS: Enoxaparin 40 MG/0.4 ML Syringe SUBCUT SCH (20:09)
[2017-07-21] MEDS: Melatonin 3 MG Tab PO SCH (20:09)
[2017-07-21] MEDS: Acetaminophen 325 MG Tab PO PRN (20:22)
[2017-07-22] MEDS: Doxycycline 100 MG in Sodium Chloride 0.9% 100 ML IV SCH (05:48)
[2017-07-22] MEDS: Magnesium Hydroxide 400 MG/5 ML Susp 30 ML Cup PO PRN (08:23)
[2017-07-22] MEDS: Magnesium Oxide 400 MG Tab PO SCH (08:23)
--- NOTE | 2017-07-22 10:24 | PCM.DCSUM1 ---
Discharge Summary - Hospital Course Free Text/Narrative:: 77-year-old gentleman admitted to the emergency department concern for sepsis with high fevers, further evaluation revealed no identifiable source he does have a significant history of dementia difficult to obtain history from him however there is a potential for tick exposure, therefore treated empirically with doxycycline under the suspicion that he had anaplasmosis exposure. He is done well through his hospital stay was significantly weak but this continued to improve with treatment of IV antibiotics. - Discharge Data Discharge Date: 07/22/17 Discharge Disposition: Home, Self-Care 01 Condition: Good - Discharge Diagnosis/Problem(s) (1) At high risk for tick borne illness SNOMED Code(s): 37488692 ICD Code: Z91.89 - OTH PERSONAL RISK FACTORS, NOT ELSEWHERE CLASSIFIED Status: Acute Current Visit: Yes - Patient Summary/Data Consults: Consultations 07/20/17 10:20 Consult to Physical Therapy [PT Evaluation and Treatment] [CONS] Routine Please Evaluate and Treat. PT Reason for Consult: Weakness This query below is only for informational purposes and is not editable. Admission Diagnosis/Problem: Fever Labs Pending at D/C: Blood culture showed no growth at 2 days, tick panel is pending - Patient Instructions Diet: Heart Healthy Diet Activity: Full Weight Bearing, Rest and Relax Today Driving: Do Not Drive Showering/Bathing: May Shower Notify Provider of: Fever, Nausea and/or Vomiting - Discharge Plan Home Medications: Home Meds Donepezil [Aricept] 5 mg PO BEDTIME 07/19/17 [History] Forms: ED Department Discharge Referrals: Dmitry Khoury MD [Primary Care Provider] - (7 to 10 days) - Discharge Summary/Plan Comment DC Time >30 min.: No Discharge Summary/Plan Comment: Continue antibiotics of doxycycline 100 mg by mouth twice a day 12 days, follow -up with primary care in 7-10 days for reevaluation - General Info Date of Service: 07/22/17 Admission Dx/Problem (Free Text: Admission Diagnosis/Problem Admission Diagnosis/Problem Fever Subjective Update: Mr. Zapata has been stable since yesterday, no fevers over the last 24 hours , difficult to obtain history from him secondary to his dementia., His is present she feels that she will be able to take care of him at home. Functional Status: Reports: Pain Controlled - Review of Systems General: Reports: No Symptoms Pulmonary: Reports: No Symptoms Cardiovascular: Reports: No Symptoms Gastrointestinal: Reports: No Symptoms - Patient Data Vitals - Most Recent: Last Vital Signs Temp 97.5 F 07/22/17 07:00 Pulse 74 07/22/17 07:00 Resp 18 07/22/17 07:00 BP 129/68 07/22/17 07:00 Pulse Ox 100 07/22/17 07:00 Weight - Most Recent: 70.125 kg I&O - Last 24 hours: Intake & Output 07/21/17 07/22/17 07/22/17 22:59 06:59 14:59 Intake Total 100 360 476 Balance 100 360 476 Lab Results - Last 24 hrs: Laboratory Results - last 24 hr 07/21/17 Range/Units 11:37 Potassium 3.7 (3.6-5.2) mmol/L [facility] Results - Last 24 hrs: Microbiology 07/19/17 15:15 Aerobic Blood Culture - Preliminary Blood - Arm, Right NO GROWTH AFTER 2 DAYS Anaerobic Blood Culture - Preliminary NO GROWTH AFTER 2 DAYS 07/19/17 15:00 Aerobic Blood Culture - Preliminary Blood - Venous - Iv Start NO GROWTH AFTER 2 DAYS Anaerobic Blood Culture - Preliminary NO GROWTH AFTER 2 DAYS Med Orders - Current: Current Medications Acetaminophen (Tylenol) 650 mg PO Q4H PRN PRN Reason: Pain (Mild 1-3)/fever Last Admin: 07/21/17 20:22 Dose: 650 mg Enoxaparin Sodium (Lovenox) 40 mg SUBCUT BEDTIME [facility] Last Admin: 07/21/17 20:09 Dose: 40 mg Doxycycline Hyclate 100 mg/ (Sodium Chloride) 100 mls @ 100 mls/hr IV Q12H [facility] Last Admin: 07/22/17 05:48 Dose: 100 mls/hr Ibuprofen (Motrin) 400 mg PO Q6H PRN PRN Reason: Pain (mild 1-3) Last Admin: 07/20/17 20:59 Dose: 400 mg Magnesium Hydroxide (Milk Of Magnesia) 30 ml PO Q12H PRN PRN Reason: Constipation Last Admin: 07/22/17 08:23 Dose: 30 ml Magnesium Oxide (Magnesium Oxide) 400 mg PO BID [facility] Last Admin: 07/22/17 08:23 Dose: 400 mg Melatonin (Melatonin) 9 mg PO BEDTIME [facility] Last Admin: 07/21/17 20:09 Dose: 9 mg Ondansetron HCl (Zofran) 4 mg IV Q4H PRN PRN Reason: Nausea/Vomiting Polyethylene Glycol (Miralax) 17 gm PO DAILY PRN PRN Reason: Constipation Last Admin: 07/22/17 06:00 Dose: 17 gm Senna/Docusate Sodium (Senna Plus) 1 tab PO BID PRN PRN Reason: Constipation Last Admin: 07/22/17 08:23 Dose: 1 tab Sodium Chloride (Saline Flush) 10 ml FLUSH ASDIRECTED PRN PRN Reason: Keep Vein Open Discontinued Medications Acetaminophen (Tylenol) 650 mg PO NOW ONE Stop: 07/19/17 15:00 Last Admin: 07/19/17 15:06 Dose: 650 mg Sodium Chloride (Normal Saline) 1,000 mls @ 999 mls/hr IV ASDIRECTED [facility] Last Admin: 07/19/17 15:06 Dose: 999 mls/hr Sodium Chloride (Normal Saline) 1,000 mls @ 999 mls/hr IV ASDIRECTED [facility] Last Admin: 07/19/17 15:10 Dose: 999 mls/hr Ceftriaxone Sodium 1 gm/ (Sodium Chloride) 50 mls @ 100 mls/hr IV ONETIME ONE Stop: 07/19/17 17:29 Last Admin: 07/19/17 16:51 Dose: 100 mls/hr Lactated Ringer's (Ringers, Lactated) 1,000 mls @ 250 mls/hr IV ASDIRECTED [facility] Stop: 07/19/17 21:05 Last Admin: 07/19/17 20:09 Dose: 250 mls/hr Lactated Ringer's (Ringers, Lactated) 1,000 mls @ 125 mls/hr IV ASDIRECTED [facility] Last Admin: 07/20/17 10:17 Dose: 125 mls/hr Levofloxacin/Dextrose 750 mg/ (Premix) 150 mls @ 100 mls/hr IV Q24H [facility] Last Admin: 07/19/17 19:54 Dose: 100 mls/hr Ibuprofen (Motrin) 600 mg PO ONETIME ONE Stop: 07/19/17 16:05 Last Admin: 07/19/17 16:43 Dose: 600 mg Potassium Chloride (Klor-Con M20) 40 meq PO ONETIME ONE Stop: 07/21/17 09:01 Last Admin: 07/21/17 09:09 Dose: 40 meq Potassium Chloride (Klor-Con M20) 40 meq PO ONETIME ONE Stop: 07/21/17 17:01 Last Admin: 07/21/17 17:19 Dose: 40 meq - Exam General: Reports: Alert HEENT: Reports: Pupils Equal Neck: Reports: Supple Lungs: Reports: Clear to Auscultation, Normal Respiratory Effort Cardiovascular: Reports: Regular Rate, Regular Rhythm GI/Abdominal Exam: Soft, Non-Tender Back Exam: Reports: Normal Inspection, Full Range of Motion Extremities: Non-Tender, No Pedal Edema
[2017-07-23 16:09] LABS: E. CHAFFEENSIS (HME) IGG TITER Negative (Neg:<1:64); E. CHAFFEENSIS (HME) IGM TITER Negative (Neg:<1:20)
== END 2017-07-22 11:20 | disposition home or self-care (01) | DRG 872 ==
LOC: JP.ED 13:46 → JP.MS 16:46
PROVIDERS: ADMIT Hospitalist; ATTEND Hospitalist
DX: A41.9 Sepsis, unspecified organism (principal); A77.49 Other ehrlichiosis; Z66 Do not resuscitate; F03.90 Unspecified dementia, unspecified severity, without behavioral disturbance, psychotic disturbance, mood disturbance, and anxiety; R50.9 Fever, unspecified; R53.83 Other fatigue; R41.0 Disorientation, unspecified; M19.90 Unspecified osteoarthritis, unspecified site
CPT/HCPCS: 36415; 71045 ×2; 80053; 81001; 83605; 85025; 86666 ×2; 86753 ×2; 87040 ×2; 93005; 96360; 96361; 99285; A9270 ×2; J7030 ×2; 80048; 83735; 84132; 97162-GP; 97530-GP; J0696; J1650; J1956; J7050; J7120

== ENCOUNTER 2019-05-24 20:16 | Inpatient (IN) | payer MEDICARE, OTHER ==
[2019-05-24] MEDS ORDERED: Piperacillin/Tazobactam 2.25 GM in Sodium Chloride 0.9% 50 ML IV ONE (21:35)
--- NOTE | 2019-05-24 21:43 | EDM.PDOC ---
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 It appears to be more painful as well. No shortness of breath or cough, no respiratory symptoms, no GI symptoms. He has not been on an antibiotic for the last 2 weeks. Onset: Unknown/Unsure Associated Symptoms: Reports: Fever/Chills, Weakness - Related Data Allergies Allergy/AdvReac Type Severity Reaction Status Date / Time No Known Allergies Allergy Verified 07/19/17 14:20 Home Meds: Home Meds Donepezil HCl 1 tab PO BEDTIME 05/24/19 [History] Ibuprofen 1 tab PO BID 05/24/19 [History] LORazepam [Ativan] 1 tab PO TID PRN 05/24/19 [History] Multivitamin with Minerals [Multiple Vitamin] 1 tab PO DAILY 05/24/19 [History] polyethylene glycoL 3350 [MiraLAX] 1 pkt PO DAILY 05/24/19 [History] Past Medical History HEENT History: Reports: Cataract Musculoskeletal History: Reports: Arthritis Neurological History: Reports: Other (See Below) Other Neuro History: dementia - Past Surgical History HEENT Surgical History: Reports: None Social & Family History - Family History Family Medical History: Noncontributory - Tobacco Use Smoking Status *Q: Never Smoker - Caffeine Use Caffeine Use: Reports: None ED ROS GENERAL - Review of Systems Review Of Systems: See Below Constitutional: Reports: Fever, Chills, Malaise Respiratory: Reports: Cough (According to the he has a chronic morning cough but that is unchanged). Denies: Shortness of Breath Cardiovascular: Denies: Chest Pain GI/Abdominal: Denies: Abdominal Pain, Nausea, Vomiting : Reports: Other (History of UTIs but no current symptoms) Skin: Reports: Other (Very erythematous, swollen and tender on the left buttock) Neurological: Denies: Headache ED EXAM, GENERAL - Physical Exam Exam: See Below Exam Limited By: No Limitations General Appearance: Alert, No Apparent Distress Eye Exam: Bilateral Eye: Other (Tracks well, no disconjugate gaze) Head: Atraumatic Neck: Supple, Non-Tender Respiratory/Chest: No Respiratory Distress, Lungs Clear Cardiovascular: Regular Rate, Rhythm GI/Abdominal: Soft, Non-Tender Extremities: Other (1+ pitting edema in both ankles, symmetric) Neurological: Alert, Slow to Respond, Other (Unable to communicate) Psychiatric: Flat Affect Skin Exam: Other (Left buttock is erythematous, swollen, with some breakdown of superficial skin and tenderness to palpation) Course - Vital Signs Last Recorded V/S: Last Vital Signs Temp 98.5 F 05/24/19 23:02 Pulse 72 05/24/19 23:02 Resp 16 05/24/19 23:02 BP 134/70 05/24/19 23:02 Pulse Ox 96 05/24/19 23:02 - Orders/Labs/Meds Orders: Active Orders 24 hr Category Date Time Status CULTURE BLOOD [BC] Urgent Lab 05/24/19 21:05 Received CULTURE BLOOD [BC] Urgent Lab 05/24/19 21:18 Received CULTURE WOUND + SMEAR [RM] Stat Lab 05/24/19 21:49 Results Blood Culture x2 Reflex Set [OM.PC] Urgent Oth 05/24/19 20:59 Ordered Medication Orders Acetaminophen (Tylenol) 650 mg PO Q4H PRN PRN Reason: Pain (Mild 1-3)/fever Donepezil HCl (Aricept) 10 mg PO BEDTIME KING Enoxaparin Sodium (Lovenox) 40 mg SUBCUT BEDTIME KING Last Admin: 05/24/19 23:37 Dose: 40 mg Haloperidol Lactate (Haldol) 1 mg IVPUSH Q2H PRN PRN Reason: Agitation Piperacillin Sod/Tazobactam (Sod 3.375 gm/ Sodium Chloride) 50 mls @ 100 mls/ hr IV Q6H KING Sodium Chloride (Normal Saline) 1,000 mls @ 125 mls/hr IV ASDIRECTED [place] Vancomycin HCl 1 gm/ Sodium (Chloride) 250 mls @ 166.667 mls/hr IV Q12H [facility] Ibuprofen (Motrin) 600 mg PO BID [facility] Melatonin (Melatonin) 9 mg PO BEDTIME [facility] Ondansetron HCl (Zofran) 4 mg IV Q4H PRN PRN Reason: Nausea/Vomiting Polyethylene Glycol (Miralax) 17 gm PO DAILY [place] Polyethylene Glycol (Miralax) 17 gm PO DAILY PRN PRN Reason: Constipation Sodium Chloride (Saline Flush) 10 ml FLUSH ASDIRECTED PRN PRN Reason: Keep Vein Open Vancomycin HCl (Vancomycin) 1 gm IV .PHARMACY TO DOSE [facility] Labs: Laboratory Tests 05/24/19 05/24/19 05/24/19 Range/Units 20:58 21:10 21:27 WBC 12.3 H (4.5-11.0) K/uL RBC 4.03 L (4.30-5.90) M/uL Hgb 12.6 (12.0-15.0) g/dL Hct 37.3 L (40.0-54.0) % MCV 93 (80-98) fL MCH 31 (27-31) pg MCHC 34 (32-36) % Plt Count 260 (150-400) K/uL Neut % (Auto) 77 H (36-66) % Lymph % (Auto) 12 L (24-44) % [place] % (Auto) 10 H (2-6) % Eos % (Auto) 2 (2-4) % Baso % (Auto) 0 (0-1) % Sodium 139 L (140-148) mmol/L Potassium 4.0 (3.6-5.2) mmol/L Chloride 104 (100-108) mmol/L Carbon Dioxide 26 (21-32) mmol/L Anion Gap 13.0 (5.0-14.0) mmol/L BUN 22 H D (7-18) mg/dL Creatinine 0.9 (0.8-1.3) mg/dL Est Cr Clr Drug Dosing 58.84 mL/min Estimated GFR (MDRD) > 60 (>60) Glucose 121 H (74-106) mg/dL Lactic Acid (0.4-2.0) mmol/L Calcium 8.9 D (8.5-10.1) mg/dL Total Bilirubin 0.4 (0.2-1.0) mg/dL AST 22 (15-37) U/L ALT 21 (12-78) U/L Alkaline Phosphatase 59 (46-116) U/L Total Protein 7.3 (6.4-8.2) g/dL Albumin 2.8 L (3.4-5.0) g/dL Globulin 4.5 H (2.3-3.5) g/dL Albumin/Globulin Ratio 0.6 L (1.2-2.2) Urine Color Yellow (YELLOW) Urine Appearance Clear (CLEAR) Urine pH 6.5 (5.0-8.0) Ur Specific [place] >= 1.030 (1.008-1.030) Urine Protein Negative (NEGATIVE) mg/dL Urine Glucose (UA) Negative (NEGATIVE) mg/dL Urine Ketones Negative (NEGATIVE) mg/dL Urine Occult Blood Small H (NEGATIVE) Urine Nitrite Negative (NEGATIVE) Urine Bilirubin Negative (NEGATIVE) Urine Urobilinogen 0.2 (0.2-1.0) EU/dL Ur Leukocyte Esterase Negative (NEGATIVE) Urine RBC 0-5 (0-5) Urine WBC Not seen (0-5) Ur Epithelial Cells Not seen Amorphous Sediment Few Urine Bacteria Not seen Urine Mucus Not seen 05/24/19 Range/Units 21:27 WBC (4.5-11.0) K/uL RBC (4.30-5.90) M/uL Hgb (12.0-15.0) g/dL Hct (40.0-54.0) % MCV (80-98) fL MCH (27-31) pg MCHC (32-36) % Plt Count (150-400) K/uL Neut % (Auto) (36-66) % Lymph % (Auto) (24-44) % [place] % (Auto) (2-6) % Eos % (Auto) (2-4) % Baso % (Auto) (0-1) % Sodium (140-148) mmol/L Potassium (3.6-5.2) mmol/L Chloride (100-108) mmol/L Carbon Dioxide (21-32) mmol/L Anion Gap (5.0-14.0) mmol/L BUN (7-18) mg/dL Creatinine (0.8-1.3) mg/dL Est Cr Clr Drug Dosing mL/min Estimated GFR (MDRD) (>60) Glucose (74-106) mg/dL Lactic Acid 1.8 (0.4-2.0) mmol/L Calcium (8.5-10.1) mg/dL Total Bilirubin (0.2-1.0) mg/dL AST (15-37) U/L ALT (12-78) U/L Alkaline Phosphatase (46-116) U/L Total Protein (6.4-8.2) g/dL Albumin (3.4-5.0) g/dL Globulin (2.3-3.5) g/dL Albumin/Globulin Ratio (1.2-2.2) Urine Color (YELLOW) Urine Appearance (CLEAR) Urine pH (5.0-8.0) Ur Specific [place] (1.008-1.030) Urine Protein (NEGATIVE) mg/dL Urine Glucose (UA) (NEGATIVE) mg/dL Urine Ketones (NEGATIVE) mg/dL Urine Occult Blood (NEGATIVE) Urine Nitrite (NEGATIVE) Urine Bilirubin (NEGATIVE) Urine Urobilinogen (0.2-1.0) EU/dL Ur Leukocyte Esterase (NEGATIVE) Urine RBC (0-5) Urine WBC (0-5) Ur Epithelial Cells Amorphous Sediment Urine Bacteria Urine Mucus Meds: Medications Generic Name Dose Route Start Last Admin Trade Name Freq PRN Reason Stop Dose Admin Acetaminophen 650 mg 05/24/19 23:08 Tylenol PO Q4H PRN Pain (Mild 1-3)/fever Donepezil HCl 10 mg 05/25/19 21:00 Aricept PO BEDTIME [facility] Enoxaparin Sodium 40 mg 05/24/19 23:08 05/24/19 23:37 Lovenox SUBCUT 40 mg BEDTIME [facility] Administration Haloperidol Lactate 1 mg 05/24/19 23:08 Haldol IVPUSH Q2H PRN Agitation Piperacillin Sod/Tazobactam 50 mls @ 100 mls/hr 05/25/19 04:00 Sod 3.375 gm/ Sodium Chloride IV Q6H [facility] Sodium Chloride 1,000 mls @ 125 mls/hr 05/24/19 23:08 Normal Saline IV ASDIRECTED [facility] Vancomycin HCl 1 gm/ Sodium 250 mls @ 166.667 mls/hr 05/25/19 08:00 Chloride IV Q12H [facility] Ibuprofen 600 mg 05/25/19 09:00 Motrin PO BID [facility] Melatonin 9 mg 05/25/19 21:00 Melatonin PO BEDTIME [facility] Ondansetron HCl 4 mg 05/24/19 23:08 Zofran IV Q4H PRN Nausea/Vomiting Polyethylene Glycol 17 gm 05/25/19 09:00 Miralax PO DAILY [facility] Polyethylene Glycol 17 gm 05/24/19 23:08 Miralax PO DAILY PRN Constipation Sodium Chloride 10 ml 05/24/19 23:08 Saline Flush FLUSH ASDIRECTED PRN Keep Vein Open Vancomycin HCl 1 gm 05/24/19 23:08 Vancomycin IV .PHARMACY TO DOSE [place] Discontinued Medications Generic Name Dose Route Start Last Admin Trade Name Freq PRN Reason Stop Dose Admin Piperacillin Sod/Tazobactam 50 mls @ 100 mls/hr 05/24/19 21:35 05/24/19 21:53 Sod 2.25 gm/ Sodium Chloride IV 05/24/19 22:04 100 mls/hr ONETIME ONE Administration Sodium Chloride 1,000 mls @ 150 mls/hr 05/24/19 21:45 05/24/19 21:54 Normal Saline IV 150 mls/hr ASDIRECTED KING Administration Vancomycin HCl 1 gm/ Sodium 250 mls @ 150 mls/hr 05/24/19 21:35 05/24/19 21: 54 Chloride IV 05/24/19 23:14 150 mls/hr ONETIME ONE Administration Lidocaine HCl 5 ml 05/24/19 20:34 05/24/19 20:45 Xylocaine-Mpf 1% INJECT 05/24/19 20:35 5 ml ONETIME ONE Administration - Re-Assessments/Exams Free Text/Narrative Re-Assessment/Exam: 05/24/19 21:44 The swollen area of the left buttock was sterilized with Betadine, infiltrated with 1% lidocaine and a 11 blade scalpel was used to incise the swollen area. Serous blood products were expelled but no purulent exudate. A culture was obtained. The area was manually opened with a sterile curved clamp but no further drainage was expelled. 2 inches of iodoform gauze was placed into the wound. An in and out catheter was placed in the bladder for an accurate urine, blood cultures, CBC, CMP and lactic acid were obtained. Lactic acid was normal, white count mildly elevated and the rest of his labs reassuring. Patient was given 1 g of vancomycin and 1.[address] Ewing kindly agreed to see the patient for admission. Blood cultures are pending. Departure - Departure Time of Disposition: 23:13 Disposition: Admitted As Inpatient 66 Clinical Impression: Cellulitis of buttock, left, At risk for sepsis - Discharge Information Sepsis Event Note - Evaluation Sepsis Screening Result: No Definite Risk - Focused Exam Vital Signs: Vital Signs Temp Pulse Resp BP Pulse Ox 05/24/19 21:54 97.6 F 78 16 135/68 95 05/24/19 20:39 99.6 F 91 16 144/73 H 96 05/24/19 20:30 99.6 F 91 16 144/73 H 96 Date Exam was Performed: 05/25/19 Time Exam was Performed: 00:29 - My Orders Last 24 Hours: My Active Orders 05/24/19 20:59 Blood Culture x2 Reflex Set [OM.PC] Urgent 05/24/19 21:05 CULTURE BLOOD [BC] Urgent 05/24/19 21:18 CULTURE BLOOD [BC] Urgent 05/24/19 21:49 CULTURE WOUND + SMEAR [RM] Stat - Assessment/Plan Last 24 Hours: My Active Orders 05/24/19 20:59 Blood Culture x2 Reflex Set [OM.PC] Urgent 05/24/19 21:05 CULTURE BLOOD [BC] Urgent 05/24/19 21:18 CULTURE BLOOD [BC] Urgent 05/24/19 21:49 CULTURE WOUND + SMEAR [RM] Stat
[2019-05-24] MEDS ORDERED: Sodium Chloride 0.9% 1,000 ML IV SCH ×2 (21:45→23:08)
--- NOTE | 2019-05-24 22:57 | PCM.HP.2 ---
H&P History of Present Illness - General Date of Service: 05/24/19 Admit Problem/Dx: Admission Diagnosis/Problem Admission Diagnosis/Problem Cellulitis and abscess of buttock Source of Information: Family, Provider, RN Notes Reviewed. No: Patient History Limitations: Reports: No Limitations - History of Present Illness Initial Comments - Free Text/Narative: Mr. Zapata is a 78-year-old gentleman who was admitted through the emergency department for further management of cellulitis and possible abscess of the buttocks. Mr. Zapata has severe dementia and is unable to provide a meaningful history concerning recent symptoms or review of systems. History is obtained from his and daughter who are present. He has had intermittent areas of skin breakdown over his coccyx. Recently he has had a recurrent deal with decubitus ulcer and over the last 24 hours has had fever. He was brought into the emergency department and noted to have fluctuant area on the right buttock, I&D was unsuccessful. There is also a firm area on the upper left buttock. Blood cultures have been obtained as well as cultures from the attempted I&D. He has been on recent antibiotic therapy for cellulitis of his leg. - Related Data Allergies/Adverse Reactions: Allergies Allergy/AdvReac Type Severity Reaction Status Date / Time No Known Allergies Allergy Verified 07/19/17 14:20 Home Medications: Home Meds Donepezil HCl 1 tab PO BEDTIME 05/24/19 [History] Ibuprofen 1 tab PO BID 05/24/19 [History] LORazepam [Ativan] 1 tab PO TID PRN 05/24/19 [History] Multivitamin with Minerals [Multiple Vitamin] 1 tab PO DAILY 05/24/19 [History] polyethylene glycoL 3350 [MiraLAX] 1 pkt PO DAILY 05/24/19 [History] Past Medical History HEENT History: Reports: Cataract Musculoskeletal History: Reports: Arthritis Neurological History: Reports: Other (See Below) Other Neuro History: dementia - Past Surgical History HEENT Surgical History: Reports: None Social & Family History - Family History Family Medical History: Noncontributory - Tobacco Use Smoking Status *Q: Never Smoker - Caffeine Use Caffeine Use: Reports: None H&P Review of Systems - Review of Systems: Review Of Systems: See Below General: Reports: ROS unobtainable (Secondary to severe dementia) Exam - Exam Exam: See Below - Vital Signs Vital Signs: Last Vital Signs Temp 97.6 F 05/24/19 21:54 Pulse 78 05/24/19 21:54 Resp 16 05/24/19 21:54 BP 135/68 05/24/19 21:54 Pulse Ox 95 05/24/19 21:54 Weight: 185 lb - Exam Quality Assessment: DVT Prophylaxis General: Alert, Cooperative, Mild Distress. No: Oriented HEENT: Conjunctiva Clear, Mucosa Moist & Benjamin Perez, Normal Nasal Septum, Posterior Pharynx Clear, Pupils Equal Neck: Supple, Trachea Midline, +2 Carotid Pulse wo Bruit Lungs: Clear to Auscultation, Normal Respiratory Effort Cardiovascular: Regular Rate, Regular Rhythm, Normal S1, Normal S2. No: Systolic Murmur, Diastolic Murmur GI/Abdominal Exam: Soft, Non-Tender, No Organomegaly, No Distention Extremities: Non-Tender, No Pedal Edema Skin: Other (Area of erythema and induration both buttocks at the gluteal cleft palpable induration on the left, decubitus ulcer present on admission) Neuro Extensive - Mental Status: Alert, Disorientation to Person, Disorientation to Place, Disorientation to Time, Memory Loss-Remote Events, Memory Loss-Recent Events. No: Normal Cognition, Memory Intact - Patient Data Lab Results Last 24 hrs: Laboratory Results - last 24 hr 05/24/19 05/24/19 05/24/19 Range/Units 20:58 21:10 21:27 WBC 12.3 H (4.5-11.0) K/uL RBC 4.03 L (4.30-5.90) M/uL Hgb 12.6 (12.0-15.0) g/dL Hct 37.3 L (40.0-54.0) % MCV 93 (80-98) fL MCH 31 (27-31) pg MCHC 34 (32-36) % Plt Count 260 (150-400) K/uL Neut % (Auto) 77 H (36-66) % Lymph % (Auto) 12 L (24-44) % [place] % (Auto) 10 H (2-6) % Eos % (Auto) 2 (2-4) % Baso % (Auto) 0 (0-1) % Sodium 139 L (140-148) mmol/L Potassium 4.0 (3.6-5.2) mmol/L Chloride 104 (100-108) mmol/L Carbon Dioxide 26 (21-32) mmol/L Anion Gap 13.0 (5.0-14.0) mmol/L BUN 22 H D (7-18) mg/dL Creatinine 0.9 (0.8-1.3) mg/dL Est Cr Clr Drug Dosing 58.84 mL/min Estimated GFR (MDRD) > 60 (>60) Glucose 121 H (74-106) mg/dL Lactic Acid (0.4-2.0) mmol/L Calcium 8.9 D (8.5-10.1) mg/dL Total Bilirubin 0.4 (0.2-1.0) mg/dL AST 22 (15-37) U/L ALT 21 (12-78) U/L Alkaline Phosphatase 59 (46-116) U/L Total Protein 7.3 (6.4-8.2) g/dL Albumin 2.8 L (3.4-5.0) g/dL Globulin 4.5 H (2.3-3.5) g/dL Albumin/Globulin Ratio 0.6 L (1.2-2.2) Urine Color Yellow (YELLOW) Urine Appearance Clear (CLEAR) Urine pH 6.5 (5.0-8.0) Ur Specific [place] >= 1.030 (1.008-1.030) Urine Protein Negative (NEGATIVE) mg/dL Urine Glucose (UA) Negative (NEGATIVE) mg/dL Urine Ketones Negative (NEGATIVE) mg/dL Urine Occult Blood Small H (NEGATIVE) Urine Nitrite Negative (NEGATIVE) Urine Bilirubin Negative (NEGATIVE) Urine Urobilinogen 0.2 (0.2-1.0) EU/dL Ur Leukocyte Esterase Negative (NEGATIVE) Urine RBC 0-5 (0-5) Urine WBC Not seen (0-5) Ur Epithelial Cells Not seen Amorphous Sediment Few Urine Bacteria Not seen Urine Mucus Not seen 05/24/19 Range/Units 21:27 WBC (4.5-11.0) K/uL RBC (4.30-5.90) M/uL Hgb (12.0-15.0) g/dL Hct (40.0-54.0) % MCV (80-98) fL MCH (27-31) pg MCHC (32-36) % Plt Count (150-400) K/uL Neut % (Auto) (36-66) % Lymph % (Auto) (24-44) % [place] % (Auto) (2-6) % Eos % (Auto) (2-4) % Baso % (Auto) (0-1) % Sodium (140-148) mmol/L Potassium (3.6-5.2) mmol/L Chloride (100-108) mmol/L Carbon Dioxide (21-32) mmol/L Anion Gap (5.0-14.0) mmol/L BUN (7-18) mg/dL Creatinine (0.8-1.3) mg/dL Est Cr Clr Drug Dosing mL/min Estimated GFR (MDRD) (>60) Glucose (74-106) mg/dL Lactic Acid 1.8 (0.4-2.0) mmol/L Calcium (8.5-10.1) mg/dL Total Bilirubin (0.2-1.0) mg/dL AST (15-37) U/L ALT (12-78) U/L Alkaline Phosphatase (46-116) U/L Total Protein (6.4-8.2) g/dL Albumin (3.4-5.0) g/dL Globulin (2.3-3.5) g/dL Albumin/Globulin Ratio (1.2-2.2) Urine Color (YELLOW) Urine Appearance (CLEAR) Urine pH (5.0-8.0) Ur Specific [place] (1.008-1.030) Urine Protein (NEGATIVE) mg/dL Urine Glucose (UA) (NEGATIVE) mg/dL Urine Ketones (NEGATIVE) mg/dL Urine Occult Blood (NEGATIVE) Urine Nitrite (NEGATIVE) Urine Bilirubin (NEGATIVE) Urine Urobilinogen (0.2-1.0) EU/dL Ur Leukocyte Esterase (NEGATIVE) Urine RBC (0-5) Urine WBC (0-5) Ur Epithelial Cells Amorphous Sediment Urine Bacteria Urine Mucus Result Diagrams: 05/24/19 20:58 05/24/19 21:27 Dylan Results Last 24 hrs: Microbiology 05/24/19 21:49 Gram Stain - Final Buttock, Left Sepsis Event Note - Evaluation Sepsis Screening Result: No Definite Risk - Focused Exam Vital Signs: Vital Signs Temp Pulse Resp BP Pulse Ox 05/24/19 21:54 97.6 F 78 16 135/68 95 05/24/19 20:39 99.6 F 91 16 144/73 H 96 05/24/19 20:30 99.6 F 91 16 144/73 H 96 Date Exam was Performed: 05/24/19 Time Exam was Performed: 22:49 *Q Meaningful Use (ADM) - VTE Risk Assess *Q Each Risk Factor Represents 1 Point: Obesity ( BMI > 25 kg/m2) Total Score 1 Point Risk Factors: 1 Each Risk Factor Represents 2 Points: None Total Score 2 Point Risk Factors: 0 Each Risk Factor Represents 3 Points: Age 75 Years or Greater Total Score 3 Point Risk Factors: 3 Each Risk Factor Represents 5 Points: None Total Score 5 Point Risk Factors: 0 Venous Thromboembolism Risk Factor Score *Q: 4 Problem List Initiated/Reviewed/Updated: Yes Orders Last 24hrs: Active Orders 24 hr Category Date Time Status Patient Status Manage Transfer [TRANSFER] Routine ADT 05/24/19 22:36 Ordered CULTURE BLOOD [BC] Urgent Lab 05/24/19 21:05 Received CULTURE BLOOD [BC] Urgent Lab 05/24/19 21:18 Received CULTURE WOUND + SMEAR [RM] Stat Lab 05/24/19 21:49 Results Sodium Chloride 0.9% [Normal Saline] 1,000 ml Med 05/24/19 21:45 Active IV ASDIRECTED Vancomycin 1 gm Med 05/24/19 21:35 Active Sodium Chloride 0.9% [Normal Saline] 250 ml IV ONETIME Blood Culture x2 Reflex Set [OM.PC] Urgent Oth 05/24/19 20:59 Ordered Resuscitation Status Routine Resus Stat 05/24/19 22:38 Ordered Medication Orders Sodium Chloride (Normal Saline) 1,000 mls @ 150 mls/hr IV ASDIRECTED [facility] Last Admin: 05/24/19 21:54 Dose: 150 mls/hr Vancomycin HCl 1 gm/ Sodium (Chloride) 250 mls @ 150 mls/hr IV ONETIME ONE Stop: 05/24/19 23:14 Last Admin: 05/24/19 21:54 Dose: 150 mls/hr Assessment/Plan Comment:: ASSESSMENT AND PLAN CELLULITIS AND POSSIBLE ABSCESS BUTTOCKS-history of recurrent decubitus ulcers, present on admission. Area of infection at the upper aspect of the gluteal cleft both buttocks. Attempted I&D on the right with no obvious abscess, area of induration on the left. -Ultrasound to evaluate for abscess in a.m. -Cultures from attempted I&D pending -Blood cultures pending -Broad-spectrum antibiotic therapy given recent antibiotics for cellulitis; vancomycin and Zosyn -Consult Dr. Rene for surgical opinion in a.m. SEVERE DEMENTIA -Continue usual outpatient medications -Melatonin 9 mg p.o. nightly -Haldol 1 mg IV every 2 hours as needed DECUBITUS ULCER PRESENT ON ADMISSION MAINTENANCE ISSUES -DVT prophylaxis; Lovenox 40 mg subcu daily -GI prophylaxis; not indicated -Guerra catheter; not indicated -Nutrition; n.p.o. until seen by Dr. Rene -Nicotine dependence; not required CODE STATUS-DNR/DNI ADMISSION STATUS-patient will be admitted to inpatient status, expect at least a 2 night hospital stay for evaluation and management of problems as outlined above. At the time of this admission I do not reasonably expected evaluation and management of this problem will require more than a 96 hour hospital stay. DISPOSITION-anticipate discharge to home after the hospital stay. PRIMARY CARE PROVIDER-Dr. Khoury - Mortality Measure Prognosis:: Good
[2019-05-24] MEDS ORDERED: Ondansetron 4 MG/2 ML SDV IV PRN (23:08)
[2019-05-24] MEDS ORDERED: Acetaminophen 325 MG Tab PO PRN (23:08)
[2019-05-24] MEDS ORDERED: Sodium Chloride 0.9% 10 ML Syringe FLUSH PRN (23:08)
[2019-05-24] MEDS ORDERED: Haloperidol Lactate 5 MG/ML SDV IVPUSH PRN (23:08)
[2019-05-24] MEDS ORDERED: Vancomycin 1 GM SDV IV SCH (23:08)
[2019-05-24] MEDS ORDERED: Polyethylene Glycol 3350 Powder 17 GM Packet PO PRN (23:08)
[2019-05-24] MEDS: Enoxaparin 40 MG/0.4 ML Syringe SUBCUT SCH (23:37)
[2019-05-25] MEDS ORDERED: Piperacillin/Tazobactam 3.375 GM in Sodium Chloride 0.9% 50 ML IV SCH (04:00)
[2019-05-25] MEDS ORDERED: Potassium Chloride 20 MEQ Tab.ER PO ONE ×2 (09:00→17:00)
[2019-05-25] MEDS: Ibuprofen 600 MG Tab PO SCH ×2 (09:28→20:01)
[2019-05-25] MEDS: Polyethylene Glycol 3350 Powder 17 GM Packet PO SCH (09:29)
--- NOTE | 2019-05-25 10:49 | PCM.PN ---
- General Info Date of Service: 05/25/19 Subjective Update: Mr. Zapata has been stable since admission, good vital signs and no significant temperature elevation. White blood cell count has improved from admission and remains only modestly elevated. He is unable to provide a meaningful history concerning symptoms or review of systems because of his underlying severe dementia. - Patient Data Vitals - Most Recent: Last Vital Signs Temp 97.1 F 05/25/19 07:00 Pulse 70 05/25/19 07:00 Resp 16 05/25/19 07:00 BP 127/53 L 05/25/19 07:00 Pulse Ox 98 05/25/19 07:00 Weight - Most Recent: 165 lb 9.6 oz I&O - Last 24 Hours: Intake & Output 05/24/19 05/25/19 05/25/19 22:59 06:59 14:59 Intake Total 1054 Balance 1054 Lab Results Last 24 Hours: Laboratory Results - last 24 hr 05/24/19 05/24/19 05/24/19 Range/Units 20:58 21:10 21:27 WBC 12.3 H (4.5-11.0) K/uL RBC 4.03 L (4.30-5.90) M/uL Hgb 12.6 (12.0-15.0) g/dL Hct 37.3 L (40.0-54.0) % MCV 93 (80-98) fL MCH 31 (27-31) pg MCHC 34 (32-36) % Plt Count 260 (150-400) K/uL Neut % (Auto) 77 H (36-66) % Lymph % (Auto) 12 L (24-44) % [place] % (Auto) 10 H (2-6) % Eos % (Auto) 2 (2-4) % Baso % (Auto) 0 (0-1) % Sodium 139 L (140-148) mmol/L Potassium 4.0 (3.6-5.2) mmol/L Chloride 104 (100-108) mmol/L Carbon Dioxide 26 (21-32) mmol/L Anion Gap 13.0 (5.0-14.0) mmol/L BUN 22 H D (7-18) mg/dL Creatinine 0.9 (0.8-1.3) mg/dL Est Cr Clr Drug Dosing 58.84 mL/min Estimated GFR (MDRD) > 60 (>60) Glucose 121 H (74-106) mg/dL Lactic Acid (0.4-2.0) mmol/L Calcium 8.9 D (8.5-10.1) mg/dL Total Bilirubin 0.4 (0.2-1.0) mg/dL AST 22 (15-37) U/L ALT 21 (12-78) U/L Alkaline Phosphatase 59 (46-116) U/L Total Protein 7.3 (6.4-8.2) g/dL Albumin 2.8 L (3.4-5.0) g/dL Globulin 4.5 H (2.3-3.5) g/dL Albumin/Globulin Ratio 0.6 L (1.2-2.2) Urine Color Yellow (YELLOW) Urine Appearance Clear (CLEAR) Urine pH 6.5 (5.0-8.0) Ur Specific [place] >= 1.030 (1.008-1.030) Urine Protein Negative (NEGATIVE) mg/dL Urine Glucose (UA) Negative (NEGATIVE) mg/dL Urine Ketones Negative (NEGATIVE) mg/dL Urine Occult Blood Small H (NEGATIVE) Urine Nitrite Negative (NEGATIVE) Urine Bilirubin Negative (NEGATIVE) Urine Urobilinogen 0.2 (0.2-1.0) EU/dL Ur Leukocyte Esterase Negative (NEGATIVE) Urine RBC 0-5 (0-5) Urine WBC Not seen (0-5) Ur Epithelial Cells Not seen Amorphous Sediment Few Urine Bacteria Not seen Urine Mucus Not seen 05/24/19 05/25/19 05/25/19 Range/Units 21:27 05:40 05:40 WBC 11.5 H (4.5-11.0) K/uL RBC 3.87 L (4.30-5.90) M/uL Hgb 11.9 L (12.0-15.0) g/dL Hct 36.0 L (40.0-54.0) % MCV 93 (80-98) fL MCH 31 (27-31) pg MCHC 33 (32-36) % Plt Count 234 (150-400) K/uL Neut % (Auto) 76 H (36-66) % Lymph % (Auto) 10 L (24-44) % [place] % (Auto) 11 H (2-6) % Eos % (Auto) 2 (2-4) % Baso % (Auto) 0 (0-1) % Sodium 141 (140-148) mmol/L Potassium 3.5 L (3.6-5.2) mmol/L Chloride 106 (100-108) mmol/L Carbon Dioxide 27 (21-32) mmol/L Anion Gap 11.5 (5.0-14.0) mmol/L BUN 15 (7-18) mg/dL Creatinine 1.0 (0.8-1.3) mg/dL Est Cr Clr Drug Dosing 52.96 mL/min Estimated GFR (MDRD) > 60 (>60) Glucose 99 (74-106) mg/dL Lactic Acid 1.8 (0.4-2.0) mmol/L Calcium 8.0 L (8.5-10.1) mg/dL Total Bilirubin (0.2-1.0) mg/dL AST (15-37) U/L ALT (12-78) U/L Alkaline Phosphatase (46-116) U/L Total Protein (6.4-8.2) g/dL Albumin (3.4-5.0) g/dL Globulin (2.3-3.5) g/dL Albumin/Globulin Ratio (1.2-2.2) Urine Color (YELLOW) Urine Appearance (CLEAR) Urine pH (5.0-8.0) Ur Specific [place] (1.008-1.030) Urine Protein (NEGATIVE) mg/dL Urine Glucose (UA) (NEGATIVE) mg/dL Urine Ketones (NEGATIVE) mg/dL Urine Occult Blood (NEGATIVE) Urine Nitrite (NEGATIVE) Urine Bilirubin (NEGATIVE) Urine Urobilinogen (0.2-1.0) EU/dL Ur Leukocyte Esterase (NEGATIVE) Urine RBC (0-5) Urine WBC (0-5) Ur Epithelial Cells Amorphous Sediment Urine Bacteria Urine Mucus Dylan Results Last 24 Hours: Microbiology 05/24/19 21:49 Gram Stain - Final Buttock, Left Med Orders - Current: Current Medications Acetaminophen (Tylenol) 650 mg PO Q4H PRN PRN Reason: Pain (Mild 1-3)/fever Donepezil HCl (Aricept) 10 mg PO BEDTIME [facility] Enoxaparin Sodium (Lovenox) 40 mg SUBCUT BEDTIME [facility] Last Admin: 05/24/19 23:37 Dose: 40 mg Haloperidol Lactate (Haldol) 1 mg IVPUSH Q2H PRN PRN Reason: Agitation Vancomycin HCl 1 gm/ Sodium (Chloride) 250 mls @ 166.667 mls/hr IV Q12H [facility] Last Admin: 05/25/19 09:25 Dose: 166.667 mls/hr Piperacillin/Tazobactam/ (Dextrose 3.375 gm/ Premix) 50 mls @ 100 mls/hr IV Q6H [facility] Ibuprofen (Motrin) 600 mg PO BID [facility] Last Admin: 05/25/19 09:28 Dose: 600 mg Melatonin (Melatonin) 9 mg PO BEDTIME [facility] Ondansetron HCl (Zofran) 4 mg IV Q4H PRN PRN Reason: Nausea/Vomiting Polyethylene Glycol (Miralax) 17 gm PO DAILY [facility] Last Admin: 05/25/19 09:29 Dose: 17 gm Potassium Chloride (Klor-Con M20) 40 meq PO ONETIME ONE Stop: 05/25/19 17:01 Sodium Chloride (Saline Flush) 10 ml FLUSH ASDIRECTED PRN PRN Reason: Keep Vein Open Discontinued Medications Piperacillin Sod/Tazobactam (Sod 2.25 gm/ Sodium Chloride) 50 mls @ 100 mls/hr IV ONETIME ONE Stop: 05/24/19 22:04 Last Admin: 05/24/19 21:53 Dose: 100 mls/hr Sodium Chloride (Normal Saline) 1,000 mls @ 150 mls/hr IV ASDIRECTED [facility] Last Admin: 05/24/19 21:54 Dose: 150 mls/hr Vancomycin HCl 1 gm/ Sodium (Chloride) 250 mls @ 150 mls/hr IV ONETIME ONE Stop: 05/24/19 23:14 Last Admin: 05/24/19 21:54 Dose: 150 mls/hr Piperacillin Sod/Tazobactam (Sod 3.375 gm/ Sodium Chloride) 50 mls @ 100 mls/ hr IV Q6H [facility] Last Admin: 05/25/19 03:22 Dose: 100 mls/hr Sodium Chloride (Normal Saline) 1,000 mls @ 125 mls/hr IV ASDIRECTED [facility] Last Admin: 05/25/19 05:11 Dose: 125 mls/hr Lidocaine HCl (Xylocaine-Mpf 1%) 5 ml INJECT ONETIME ONE Stop: 05/24/19 20:35 Last Admin: 05/24/19 20:45 Dose: 5 ml Potassium Chloride (Klor-Con M20) 40 meq PO ONETIME ONE Stop: 05/25/19 09:01 Last Admin: 05/25/19 09:29 Dose: 40 meq Vancomycin HCl (Vancomycin) 1 gm IV .PHARMACY TO DOSE [place] Stop: 05/25/19 08:00 - Exam Quality Assessment: DVT Prophylaxis General: Alert, No Acute Distress Lungs: Clear to Auscultation, Normal Respiratory Effort Cardiovascular: Regular Rate, Regular Rhythm, No Murmurs GI/Abdominal Exam: Soft, Non-Tender, No Organomegaly, No Distention Sepsis Event Note - Evaluation Sepsis Screening Result: No Definite Risk - Focused Exam Vital Signs: Vital Signs Temp Pulse Resp BP Pulse Ox 05/25/19 07:00 97.1 F 70 16 127/53 L 98 05/25/19 03:08 98.7 F 18 149/89 H 05/24/19 23:02 98.5 F 72 16 134/70 96 Date Exam was Performed: 05/25/19 Time Exam was Performed: 10:46 - Problem List Review Problem List Initiated/Reviewed/Updated: Yes - My Orders Last 24 Hours: My Active Orders 05/24/19 22:38 Resuscitation Status Routine 05/24/19 23:08 Patient Status [ADT] Routine Ambulate [RC] QID Height and Weight [RC] DAILY Intake and Output [RC] QSHIFT Notify Provider Consults [RC] ASDIRECTED Notify Provider Vital Signs [RC] ASDIRECTED Oxygen Therapy [RC] PRN Peripheral IV Care [RC] . DIRECTED Up With Assistance [RC] ASDIRECTED Up to Chair [RC] QID Vital Signs [RC] Q4H Consult to Physician [CONS] Routine Acetaminophen [Tylenol] 650 mg PO Q4H PRN Enoxaparin [Lovenox] 40 mg SUBCUT BEDTIME Haloperidol Lactate [Haldol] 1 mg IVPUSH Q2H PRN Ondansetron [Zofran] 4 mg IV Q4H PRN Sodium Chloride 0.9% [Saline Flush] 10 ml FLUSH ASDIRECTED PRN Peripheral IV Insertion Adult [OM.PC] Routine 05/25/19 08:00 Extremity Non Vascular Lt [US] Urgent Vancomycin 1 gm Sodium Chloride 0.9% [Normal Saline] 250 ml IV Q12H 05/25/19 09:00 Ibuprofen [Motrin] 600 mg PO BID polyethylene glycoL 3350 [MiraLAX] 17 gm PO DAILY 05/25/19 10:00 Piperacillin/Tazobactam/Dext [Zosyn in Dextrose Iso-Osmotic 3.375 GM] 3.375 gm Premix Bag 1 bag IV Q6H 05/25/19 10:44 Convert IV to Saline Lock [OM.PC] Routine 05/25/19 17:00 Potassium Chloride [Klor-Con M20] 40 meq PO ONETIME ONE 05/25/19 21:00 Donepezil [Aricept] 10 mg PO BEDTIME Melatonin 9 mg PO BEDTIME 05/25/19 Breakfast Mechanical Soft Diet [DIET] - Plan Plan:: ASSESSMENT AND PLAN CELLULITIS AND POSSIBLE ABSCESS BUTTOCKS-history of recurrent decubitus ulcers, present on admission. Area of infection at the upper aspect of the gluteal cleft both buttocks. Sound obtained this morning shows no evidence of active abscess. He has been seen and evaluated by Dr. Rene, continue current management pending culture results -Cultures from attempted I&D pending -Blood cultures pending -Broad-spectrum antibiotic therapy given recent antibiotics for cellulitis; vancomycin and Zosyn -Trickle follow-up per Dr. Rene SEVERE DEMENTIA-we will with no significant agitation thus far -Continue usual outpatient medications -Melatonin 9 mg p.o. nightly -Haldol 1 mg IV every 2 hours as needed DECUBITUS ULCER PRESENT ON ADMISSION PALLIATIVE CARE-family has requested DNR/DNI status and he is considering possible hospice admission. MAINTENANCE ISSUES -DVT prophylaxis; Lovenox 40 mg subcu daily -GI prophylaxis; not indicated -Guerra catheter; not indicated -Nutrition; n.p.o. until seen by Dr. Rene -Nicotine dependence; not required CODE STATUS-DNR/DNI ADMISSION STATUS-patient will be admitted to inpatient status, expect at least a 2 night hospital stay for evaluation and management of problems as outlined above. At the time of this admission I do not reasonably expected evaluation and management of this problem will require more than a 96 hour hospital stay. DISPOSITION-anticipate discharge to home tomorrow with home care services versus hospice PRIMARY CARE PROVIDER-Dr. Khoury
[2019-05-25] MEDS: Piperacillin/Tazobactam/Dext 3.375 GM in Premix Bag 1 BAG IV SCH ×3 (11:12→21:53)
--- NOTE | 2019-05-25 12:18 | CONS ---
DATE OF SERVICE: 05/25/2019 REFERRING PHYSICIAN: CONSULTING PHYSICIAN: Reji Rene MD REASON FOR CONSULTATION: Evaluation of cellulitis on buttocks. HISTORY OF PRESENT ILLNESS: This is a pleasant 78-year-old male who has been admitted now for cellulitis of his bilateral buttocks. Information is difficult to obtain as the patient is nonverbal; however, this data is a combination of family and chart review. The patient does have a longstanding history of skin breakdown, which is described to me as most likely moisture-associated skin breakdown secondary to incontinence. The patient had an I and D performed in the clinic, however, no fluid was gleaned from that area, modified by recent history of cellulitis. PAST MEDICAL HISTORY: 1. Dementia. 2. History of cellulitis. 3. Cataracts. 4. Arthritis. SOCIAL HISTORY: Lives in an assisted living type facility. does significant amount of cares. REVIEW OF SYSTEMS: Again, this is obtained from chart and family. CONSTITUTIONAL: No significant changes. RESPIRATORY: No shortness of breath. CARDIOVASCULAR: No history of myocardial infarction. GASTROINTESTINAL: No significant change. GENITOURINARY: History of UTIs, but no abnormalities. SKIN: As above and below. NEUROLOGIC: Not oriented. PHYSICAL EXAMINATION: VITAL SIGNS: Temperature 97.1 and blood pressure 127/53. HEENT: Pupils are equal. NECK: Supple. LUNGS: Clear. CARDIOVASCULAR: Regular rhythm and rate. ABDOMEN: Nondistended. SKIN: Bilateral buttocks shows erythematous area. There is an indurated area on bilateral buttocks. However, this is not fluctuant. IMAGING: Ultrasound report did not show any evidence of abscess per tech report. LABORATORY RESULTS: Decreasing white blood cell count of 11.5. ASSESSMENT: Cellulitis. PLAN: Continue IV antibiotics at this time. There is no evidence of abscess as this has been attempted to be drained previously. Recently, ultrasound does not show any fluid collection and there is no fluctuance palpated on exam. The concern is to make an incision to evaluate this for abscess might lead to a chronic nonhealing ulcer in that area due to the patient's altered mental state and more bedridden-type lifestyle. We will evaluate tomorrow. Reji Rene MD /[id number]
[2019-05-25] MEDS: Melatonin 3 MG Tab PO SCH (20:01)
[2019-05-25] MEDS: Donepezil 10 MG Tab PO SCH (20:01)
[2019-05-25] MEDS: Enoxaparin 40 MG/0.4 ML Syringe SUBCUT SCH (20:02)
[2019-05-26] MEDS: Piperacillin/Tazobactam/Dext 3.375 GM in Premix Bag 1 BAG IV SCH ×2 (03:50→09:17)
[2019-05-26] MEDS: Polyethylene Glycol 3350 Powder 17 GM Packet PO SCH (08:04)
[2019-05-26] MEDS: Ibuprofen 600 MG Tab PO SCH ×2 (08:04→20:28)
--- NOTE | 2019-05-26 10:25 | US ---
Extremity Non Vascular Lt CLINICAL HISTORY: Left buttock cellulitis, evaluate for fluid collection FINDINGS: This mild heterogeneity in the subcutaneous tissue of the left buttock area. There is a curvilinear defect which extends over approximately 1.9 there is a 5 x 6 mm ovoid area just deep to the skin which may represent some localized cellulitis. No definite fluid collection is identified. There is no internal flow cm to the cutaneous region. IMPRESSION: Heterogeneous region in the left buttock or there is clinical cellulitis. There appears to be a oblique track measuring approximately 1.9 cm which may be a site of previous drainage which is described in history. No abscess suggested on current study
--- NOTE | 2019-05-26 12:41 | PCM.PN ---
- General Info Date of Service: 05/26/19 Subjective Update: There were no acute events overnight. The patient is alert but he is not interactive and is nonverbal. Vital signs have been stable. He has appeared comfortable. No significant behavior issues. With assistance he is able to get out of bed and get to the chair. No fevers. Blood cultures are negative. Wound culture is growing a gram-positive cocci with identification pending. Functional Status: Reports: Pain Controlled - Review of Systems General: Reports: Weakness Neurological: Reports: Confusion - Patient Data Vitals - Most Recent: Last Vital Signs Temp 35.4 C L 05/26/19 10:00 Pulse 66 05/26/19 10:00 Resp 18 05/26/19 10:00 BP 138/76 05/26/19 10:00 Pulse Ox 96 05/26/19 10:00 Weight - Most Recent: 75.115 kg I&O - Last 24 Hours: Intake & Output 05/25/19 05/26/19 05/26/19 22:59 06:59 14:59 Intake Total 420 350 800 Balance 420 350 800 Dylan Results Last 24 Hours: Microbiology 05/24/19 21:49 Gram Stain - Final Buttock, Left Wound Culture - Preliminary 05/24/19 21:05 Aerobic Blood Culture - Preliminary Blood - Venous - Iv Start NO GROWTH AFTER 1 DAY Anaerobic Blood Culture - Preliminary NO GROWTH AFTER 1 DAY 05/24/19 21:18 Aerobic Blood Culture - Preliminary Blood - Venous - Iv Start NO GROWTH AFTER 1 DAY Anaerobic Blood Culture - Preliminary NO GROWTH AFTER 1 DAY Med Orders - Current: Current Medications Acetaminophen (Tylenol) 650 mg PO Q4H PRN PRN Reason: Pain (Mild 1-3)/fever Donepezil HCl (Aricept) 10 mg PO BEDTIME [facility] Last Admin: 05/25/19 20:01 Dose: 10 mg Enoxaparin Sodium (Lovenox) 40 mg SUBCUT BEDTIME [facility] Last Admin: 05/25/19 20:02 Dose: 40 mg Haloperidol Lactate (Haldol) 1 mg IVPUSH Q2H PRN PRN Reason: Agitation Last Admin: 05/25/19 20:16 Dose: 1 mg Ibuprofen (Motrin) 600 mg PO BID [facility] Last Admin: 05/26/19 08:04 Dose: 600 mg Melatonin (Melatonin) 9 mg PO BEDTIME [facility] Last Admin: 05/25/19 20:01 Dose: 9 mg Ondansetron HCl (Zofran) 4 mg IV Q4H PRN PRN Reason: Nausea/Vomiting Polyethylene Glycol (Miralax) 17 gm PO DAILY [facility] Last Admin: 05/26/19 08:04 Dose: 17 gm Sodium Chloride (Saline Flush) 10 ml FLUSH ASDIRECTED PRN PRN Reason: Keep Vein Open Discontinued Medications Piperacillin Sod/Tazobactam (Sod 2.25 gm/ Sodium Chloride) 50 mls @ 100 mls/hr IV ONETIME ONE Stop: 05/24/19 22:04 Last Admin: 05/24/19 21:53 Dose: 100 mls/hr Sodium Chloride (Normal Saline) 1,000 mls @ 150 mls/hr IV ASDIRECTED [facility] Last Admin: 05/24/19 21:54 Dose: 150 mls/hr Vancomycin HCl 1 gm/ Sodium (Chloride) 250 mls @ 150 mls/hr IV ONETIME ONE Stop: 05/24/19 23:14 Last Admin: 05/24/19 21:54 Dose: 150 mls/hr Piperacillin Sod/Tazobactam (Sod 3.375 gm/ Sodium Chloride) 50 mls @ 100 mls/ hr IV Q6H [facility] Last Admin: 05/25/19 03:22 Dose: 100 mls/hr Sodium Chloride (Normal Saline) 1,000 mls @ 125 mls/hr IV ASDIRECTED [facility] Last Admin: 05/25/19 05:11 Dose: 125 mls/hr Vancomycin HCl 1 gm/ Sodium (Chloride) 250 mls @ 166.667 mls/hr IV Q12H [facility] Last Admin: 05/26/19 07:35 Dose: 166.667 mls/hr Piperacillin/Tazobactam/ (Dextrose 3.375 gm/ Premix) 50 mls @ 100 mls/hr IV Q6H [facility] Last Admin: 05/26/19 09:17 Dose: 100 mls/hr Lidocaine HCl (Xylocaine-Mpf 1%) 5 ml INJECT ONETIME ONE Stop: 05/24/19 20:35 Last Admin: 05/24/19 20:45 Dose: 5 ml Potassium Chloride (Klor-Con M20) 40 meq PO ONETIME ONE Stop: 05/25/19 09:01 Last Admin: 04/05/20 09:29 Dose: 40 meq Potassium Chloride (Klor-Con M20) 40 meq PO ONETIME ONE Stop: 05/25/19 17:01 Last Admin: 05/25/19 16:50 Dose: 40 meq Vancomycin HCl (Vancomycin) 1 gm IV .PHARMACY TO DOSE [place] Stop: 05/25/19 08:00 - Exam Quality Assessment: No: Supplemental Oxygen General: Alert, Cooperative, No Acute Distress. No: Oriented Lungs: Normal Respiratory Effort Cardiovascular: Regular Rate, Regular Rhythm GI/Abdominal Exam: Soft, No Distention Extremities: No Pedal Edema Psy/Mental Status: Alert. No: Agitated Sepsis Event Note - Evaluation Sepsis Screening Result: No Definite Risk - Focused Exam Vital Signs: Vital Signs Temp Pulse Resp BP Pulse Ox 05/26/19 10:00 35.4 C L 66 18 138/76 96 05/26/19 07:33 36.3 C 72 18 144/71 H 98 05/26/19 03:53 36.3 C 115 H 16 109/62 90 L 05/26/19 02:51 36.3 C 69 18 136/109 H 98 Date Exam was Performed: 05/26/19 Time Exam was Performed: 14:08 - Problem List Review Problem List Initiated/Reviewed/Updated: Yes - My Orders Last 24 Hours: My Active Orders 05/26/19 10:50 PT Evaluation and Treatment [CONS] Routine 05/26/19 21:00 Sulfamethoxazole/Trimethoprim [Septra DS] 1 tab PO BID 05/27/19 05:00 BASIC METABOLIC PANEL,BMP [CHEM] Timed CBC W/O DIFF,HEMOGRAM [HEME] Timed (1) - Plan Plan:: ASSESSMENT AND PLAN CELLULITIS AND POSSIBLE ABSCESS BUTTOCKS-history of recurrent decubitus ulcers, present on admission. Area of infection at the upper aspect of the gluteal cleft both buttocks. Clinically improving. Blood cultures negative. Wound culture with gram-positive cocci but identification pending. -Change antibiotics to Bactrim -Local wound care with Allevyn -Follow-up cultures -Outpatient follow-up per Dr. Rene SEVERE ALZHEIMER'S DEMENTIA-no significant agitation. Patient meets criteria for hospice and family is interested. -Informational visit from hospice this afternoon -Continue usual outpatient medications -Melatonin 9 mg p.o. nightly -Haldol 1 mg IV every 2 hours as needed DECUBITUS ULCER-PRESENT ON ADMISSION -Local wound care PALLIATIVE CARE-family has requested DNR/DNI status and is considering possible hospice admission. MAINTENANCE ISSUES -DVT prophylaxis; Lovenox 40 mg subcu daily -GI prophylaxis; not indicated -Guerra catheter; not indicated -Nutrition; n.p.o. until seen by Dr. Rene DISPOSITION-anticipate discharge to home tomorrow with home care services versus hospice Benny Moore MD
[2019-05-26] MEDS: Enoxaparin 40 MG/0.4 ML Syringe SUBCUT SCH (20:28)
[2019-05-26] MEDS: Melatonin 3 MG Tab PO SCH (20:28)
[2019-05-26] MEDS: Sulfamethoxazole/Trimethoprim 800-160 MG Tab PO SCH (20:28)
[2019-05-26] MEDS: Donepezil 10 MG Tab PO SCH (20:28)
--- NOTE | 2019-05-27 09:55 | PCM.DCSUM1 ---
Discharge Summary - Hospital Course Brief History: 78-year-old male with severe Alzheimer's dementia who presented with fever and concern for worsening infection in his coccyx area. He was admitted for management of cellulitis and possible abscess involving the coccyx area. Diagnosis: Stroke: No - Discharge Data Discharge Date: 05/27/19 Discharge Disposition: DC/Tfer to Hospice - Home 50 Condition: Stable - Referral to Home Health Primary Care Physician: Dmitry Khoury MD - Discharge Diagnosis/Problem(s) (1) Cellulitis of buttock, left SNOMED Code(s): 99788950 ICD Code: L03.317 - CELLULITIS OF BUTTOCK Status: Acute Current Visit: Yes (2) Alzheimer's dementia, late onset, with behavioral disturbance SNOMED Code(s): 698398965 ICD Code: G30.1 - ALZHEIMER'S DISEASE WITH LATE ONSET; F02.81 - DEMENTIA IN OTH DISEASES CLASSD ELSWHR W BEHAVIORAL DISTURB Status: Chronic Current Visit: Yes - Patient Summary/Data Consults: Consultations 05/24/19 23:08 Consult to Physician [CONS] Routine Consulting Provider: Reji Rene Call Completed to Consulting Physician: Yes Reason for Consult: Cellulitis possible abscess buttocks 05/26/19 10:50 PT Evaluation and Treatment [CONS] Routine Please Evaluate and Treat. PT Reason for Consult: Strengthening This query below is only for informational purposes and is not editable. Admission Diagnosis/Problem: Cellulitis and abscess of buttock Hospital Course: Lance presented to the emergency room with fever and increasing redness and swelling over the coccyx. He had recently been treated for infection in that area. Work-up in the emergency room was concerning for possible abscess though an incision and debridement did not produce significant purulent material. Some fluid was expelled and this was sent for culture. Because he had recently received oral antibiotics he was started on broad-spectrum antibiotics including vancomycin and Pip/Tazo. He was seen by Dr. Rene of the surgical service and he did not feel that there was any underlying abscess and this was further evaluated with an ultrasound which did not show any evidence for abscess. Over the next couple of days he did show improvement in his clinical status. His white blood cell count trended down and normalized. He did not have any more fevers during the course of the hospital stay. The culture from the wound did eventually grow out MRSA which was sensitive to all medications other than oxacillin. He was transitioned to Bactrim at this point. Even after the transition to oral antibiotics we saw additional improvement in the area of cellulitis in the coccyx wound. We have been utilizing local wound care including Allevyn dressings over the coccyx. The area appears much improved. He is stable and safe for discharged home at this time. He will need 5 more days of oral antibiotics with Bactrim. During the hospital stay we did talk to his and family about the possibility of transitioning to hospice cares given his severe Alzheimer's dementia. He is incontinent of bowel and bladder and is nonverbal. He requires assistance with all of his ADLs though he is able to feed himself. I believe he would be an appropriate candidate for hospice admission. Family is interested in hospice admission after his discharge from the hospital. - Patient Instructions Diet: Regular Diet as Tolerated Activity: As Tolerated Showering/Bathing: May Shower Notify Provider of: Fever, Increased Pain Other/Special Instructions: 1. You were in the hospital for management of cellulitis involving your sacral area. Your condition has been improving with antibiotic therapy. A culture of the area of infection did grow out MRSA. We have transitioned your antibiotics to Bactrim. You should take 1 tablet twice daily for 10 more doses. Your first dose outside of the hospital will be due tonight. 2. To help the sacral area heal I would recommend that you cover the wound with Allevyn. This dressing can be changed every 3 days unless it is soiled. 3. Continue your usual home medications as previously prescribed. 4. I have placed a referral to hospice. They will help ease your transition back to the assisted living facility. They will help you focus on comfort and maximize the number of good days. - Discharge Plan *PRESCRIPTION DRUG MONITORING PROGRAM REVIEWED*: Not Applicable *COPY OF PRESCRIPTION DRUG MONITORING REPORT IN PATIENT CHANTELLE: Not Applicable Prescriptions/Med Rec: Sulfamethoxazole/Trimethoprim [Septra DS] 1 tab PO BID #10 tablet Home Medications: Home Meds Donepezil HCl 1 tab PO BEDTIME 05/24/19 [History] Ibuprofen 1 tab PO BID 05/24/19 [History] LORazepam [Ativan] 1 tab PO TID PRN 05/24/19 [History] Multivitamin with Minerals [Multiple Vitamin] 1 tab PO DAILY 05/24/19 [History] polyethylene glycoL 3350 [MiraLAX] 1 pkt PO DAILY 05/24/19 [History] Sulfamethoxazole/Trimethoprim [Septra DS] 1 tab PO BID #10 tablet 05/27/19 [Rx] Oxygen Therapy Mode: Room Air Patient Handouts: Cellulitis, Adult, [id number], Sulfamethoxazole; Trimethoprim, SMX-TMP tablets Referrals: Dmitry Khoury MD [Primary Care Provider] - - Discharge Summary/Plan Comment DC Time >30 min.: Yes (40-coordinating hospice) - Patient Data Vitals - Most Recent: Last Vital Signs Temp 36.6 C 05/27/19 04:00 Pulse 84 05/27/19 04:00 Resp 16 05/27/19 04:00 BP 151/90 H 05/27/19 04:00 Pulse Ox 99 05/27/19 04:00 Weight - Most Recent: 75.115 kg I&O - Last 24 hours: Intake & Output 05/26/19 05/27/19 05/27/19 22:59 06:59 14:59 Intake Total 300 Balance 300 Lab Results - Last 24 hrs: Laboratory Results - last 24 hr 05/27/19 05/27/19 Range/Units 05:49 05:49 WBC 8.0 (4.5-11.0) K/uL RBC 3.93 L (4.30-5.90) M/uL Hgb 12.0 (12.0-15.0) g/dL Hct 36.4 L (40.0-54.0) % MCV 93 (80-98) fL MCH 31 (27-31) pg MCHC 33 (32-36) % Plt Count 285 (150-400) K/uL Sodium 141 (140-148) mmol/L Potassium 3.8 (3.6-5.2) mmol/L Chloride 107 (100-108) mmol/L Carbon Dioxide 25 (21-32) mmol/L Anion Gap 9.0 (5.0-14.0) mmol/L BUN 13 (7-18) mg/dL Creatinine 0.8 (0.8-1.3) mg/dL Est Cr Clr Drug Dosing 66.10 mL/min Estimated GFR (MDRD) > 60 (>60) Glucose 96 (74-106) mg/dL Calcium 8.5 (8.5-10.1) mg/dL [facility] Results - Last 24 hrs: Microbiology 05/24/19 21:49 Gram Stain - Final Buttock, Left Wound Culture - Final (Mrsa) Staphylococcus Aureus 05/24/19 21:18 Aerobic Blood Culture - Preliminary Blood - Venous - Iv Start NO GROWTH AFTER 2 DAYS Anaerobic Blood Culture - Preliminary NO GROWTH AFTER 2 DAYS 05/24/19 21:05 Aerobic Blood Culture - Preliminary Blood - Venous - Iv Start NO GROWTH AFTER 2 DAYS Anaerobic Blood Culture - Preliminary NO GROWTH AFTER 2 DAYS Med Orders - Current: Current Medications Acetaminophen (Tylenol) 650 mg PO Q4H PRN PRN Reason: Pain (Mild 1-3)/fever Donepezil HCl (Aricept) 10 mg PO BEDTIME [facility] Last Admin: 05/26/19 20:28 Dose: 10 mg Enoxaparin Sodium (Lovenox) 40 mg SUBCUT BEDTIME [facility] [place] Last Admin: 05/26/19 20:28 Dose: 40 mg Haloperidol Lactate (Haldol) 1 mg IVPUSH Q2H PRN PRN Reason: Agitation Last Admin: 05/25/19 20:16 Dose: 1 mg Ibuprofen (Motrin) 600 mg PO BID [facility] [place] Last Admin: 05/26/19 20:28 Dose: 600 mg Melatonin (Melatonin) 9 mg PO BEDTIME [facility] [place] Last Admin: 05/26/19 20:28 Dose: 9 mg Ondansetron HCl (Zofran) 4 mg IV Q4H PRN PRN Reason: Nausea/Vomiting Polyethylene Glycol (Miralax) 17 gm PO DAILY [facility] [place] Last Admin: 05/26/19 08:04 Dose: 17 gm Sodium Chloride (Saline Flush) 10 ml FLUSH ASDIRECTED PRN PRN Reason: Keep Vein Open Trimethoprim/Sulfamethoxazole (Septra Ds) 1 tab PO BID [facility] [place] Last Admin: 05/26/19 20:28 Dose: 1 tab Discontinued Medications Piperacillin Sod/Tazobactam (Sod 2.25 gm/ Sodium Chloride) 50 mls @ 100 mls/hr IV ONETIME ONE Stop: 05/24/19 22:04 Last Admin: 05/24/19 21:53 Dose: 100 mls/hr Sodium Chloride (Normal Saline) 1,000 mls @ 150 mls/hr IV ASDIRECTED [facility] [place] Last Admin: 04/04/20 21:54 Dose: 150 mls/hr Vancomycin HCl 1 gm/ Sodium (Chloride) 250 mls @ 150 mls/hr IV ONETIME ONE Stop: 05/24/19 23:14 Last Admin: 05/24/19 21:54 Dose: 150 mls/hr Piperacillin Sod/Tazobactam (Sod 3.375 gm/ Sodium Chloride) 50 mls @ 100 mls/ hr IV Q6H [facility] [place] Last Admin: 05/25/19 03:22 Dose: 100 mls/hr Sodium Chloride (Normal Saline) 1,000 mls @ 125 mls/hr IV ASDIRECTED [facility] [place] Last Admin: 05/25/19 05:11 Dose: 125 mls/hr Vancomycin HCl 1 gm/ Sodium (Chloride) 250 mls @ 166.667 mls/hr IV Q12H [facility] [place] Last Admin: 05/26/19 07:35 Dose: 166.667 mls/hr Piperacillin/Tazobactam/ (Dextrose 3.375 gm/ Premix) 50 mls @ 100 mls/hr IV Q6H [facility] [place] Last Admin: 05/26/19 09:17 Dose: 100 mls/hr Lidocaine HCl (Xylocaine-Mpf 1%) 5 ml INJECT ONETIME ONE Stop: 05/24/19 20:35 Last Admin: 05/24/19 20:45 Dose: 5 ml Potassium Chloride (Klor-Con M20) 40 meq PO ONETIME ONE Stop: 05/25/19 09:01 Last Admin: 05/25/19 09:29 Dose: 40 meq Potassium Chloride (Klor-Con M20) 40 meq PO ONETIME ONE Stop: 05/25/19 17:01 Last Admin: 05/25/19 16:50 Dose: 40 meq Vancomycin HCl (Vancomycin) 1 gm IV .PHARMACY TO DOSE [facility] Stop: 05/25/19 08:00 - Exam Quality Assessment: Denies: Supplemental Oxygen General: Reports: Alert, No Acute Distress. Denies: Oriented Lungs: Reports: Normal Respiratory Effort GI/Abdominal Exam: Soft, No Distention Psy/Mental Status: Reports: Alert. Denies: Agitated
[2019-05-27] MEDS: Sulfamethoxazole/Trimethoprim 800-160 MG Tab PO SCH (09:58)
[2019-05-27] MEDS: Ibuprofen 600 MG Tab PO SCH (09:58)
[2019-05-27] MEDS: Polyethylene Glycol 3350 Powder 17 GM Packet PO SCH (09:59)
== END 2019-05-27 12:11 | disposition hospice, home (50) | DRG 603 ==
LOC: JP.ED 20:16 → JP.MS 22:36
PROVIDERS: ADMIT Hospitalist; ATTEND Internal Medicine
DX: L03.317 Cellulitis of buttock (principal); F02.81 Dementia in other diseases classified elsewhere, unspecified severity, with behavioral disturbance; F03.90 Unspecified dementia, unspecified severity, without behavioral disturbance, psychotic disturbance, mood disturbance, and anxiety; G30.1 Alzheimer's disease with late onset; Z66 Do not resuscitate; H26.9 Unspecified cataract; M19.90 Unspecified osteoarthritis, unspecified site; L89.329 Pressure ulcer of left buttock, unspecified stage; L89.319 Pressure ulcer of right buttock, unspecified stage; B95.62 Methicillin resistant Staphylococcus aureus infection as the cause of diseases classified elsewhere; Z79.899 Other long term (current) drug therapy
CPT/HCPCS: 10060; 10061; 36415; 80053; 81001; 83605; 85025; 87040 ×2; 87070; 87077; 87186; 87205; 96365; 96375; 99284; 99285; J2001; J2543; J3370; J7030; J7050 ×2; 76881-26; 76881-LT; 80048; 85027; 97161-GP; A9270-GY; J1630; J1650